=== PATIENT | female | born 1945 | race Caucasian/White ===

== ENCOUNTER 2018-03-30 11:58 | Emergency (ER) | payer MEDICARE, OTHER ==
[2018-03-30] MEDS ORDERED: NS 0.9% 1000 ML* 1,000 ML IV ONE (12:45)
--- NOTE | 2018-03-30 13:17 | RAD ---
HISTORY: Shortness of breath COMPARISONS: August 22, 2014 VIEWS: 1: frontal portable view of the chest at 1:03 PM FINDINGS: LINES AND TUBES: None. CARDIOMEDIASTINAL SILHOUETTE: The cardiomediastinal silhouette is normal for portable technique. PLEURA: The costophrenic angles are sharp. No pleural abnormalities are noted. LUNG PARENCHYMA: The lungs are clear. ABDOMEN: The upper abdomen is clear. There is no subphrenic gas. BONES AND SOFT TISSUES: No bone or soft tissue abnormalities are noted. IMPRESSION: NO ACTIVE CARDIOPULMONARY DISEASE.
[2018-03-30 13:19] LABS: ABS Basophils 0.1 10^3/ul (0-0.2); ABS Eosinophils 0.5 10^3/ul (0-0.6); ABS Lymphocytes 3.5 10^3/ul (1.0-4.8); ABS Monocytes 0.9 10^3/ul (0-0.8); ABS Neutrophils 7.7 10^3/ul (1.5-7.7); ABS Nucleated RBC 0 10^3/ul; Eosinophil % 3.7 % (0-6); Hematocrit 38 % (35-47); Hemoglobin 12.7 g/dl (12.0-16.0); Lymphocyte % 27.7 % (25-47); Mean Corpuscular HGB Conc 34 g/dl (31-36); Mean Corpuscular Hemoglobin 30 pg (27-31); Mean Corpuscular Volume 88 fL (80-97); Mean Platelet Volume 8.6 um3 (7.4-10.4); Nucleated Red Blood Cells % 0.1; Platelet Count 222 10^3/ul (150-450); Red Blood Count 4.27 10^6/ul (4.0-5.4); Red Cell Distribution Width 14 % (10.5-15); White Blood Count 12.7 10^3/ul (3.5-10.8)
--- NOTE | 2018-03-30 13:25 | RAD ---
HISTORY: Altered mental status COMPARISONS: August 23, 2014 TECHNIQUE: Multiple contiguous axial CT scans were obtained of the head without intravenous contrast. FINDINGS: HEMORRHAGE/INFARCT: There is no hemorrhage or acute infarct. MASSES/SHIFT: There is no mass or shift. EXTRA-AXIAL SPACES: There are no extra-axial fluid collections. SULCI AND VENTRICLES: There is diffuse and proportional enlargement of the sulci and ventricles. CEREBRUM: There is hypoattenuation of the periventricular and subcortical white matter. BRAINSTEM: There are no focal parenchymal abnormalities. CEREBELLUM: There are no focal parenchymal abnormalities. VESSELS: There is calcification of the cavernous segments of the internal carotid arteries bilaterally and of the distal vertebral arteries bilaterally. PARANASAL SINUSES: The paranasal sinuses are clear. ORBITS: The orbits are unremarkable. BONES AND SOFT TISSUE: No bone or soft tissue abnormalities are noted. OTHER: None IMPRESSION: NO ACUTE INTRACRANIAL PATHOLOGY. DIFFUSE INVOLUTIONAL CHANGE WITH CHRONIC SMALL VESSEL ISCHEMIC CHANGES.
[2018-03-30 13:26] LABS: INR 0.98 (0.77-1.02)
[2018-03-30 13:36] LABS: EGFR Non-African American 39.1 (>60)
[2018-03-30] MEDS ORDERED: Magnesium Sulfate 1 GM IV* 1 GM/100 ML BAG IV ONE (14:13)
[2018-03-30 15:09] VITALS: BP 116/69
[2018-03-30] MEDS ORDERED: LORazepam INJ* 2 MG/ML 1 ML VIAL IV PUSH ONE (15:19)
[2018-03-30] MEDS ORDERED: LORazepam INJ* 2 MG/ML 1 ML VIAL ONE (15:21)
[2018-03-30 16:26] LABS: Urine Appearance Cloudy; Urine Blood Negative (Negative); Urine Color Amber; Urine Ketones Negative (Negative); Urine Protein 1+(30 mg/dL) (Negative); Urine Specific Gravity 1.023 (1.010-1.030); Urine Urobilinogen Positive (Negative)
[2018-03-30] MEDS ORDERED: Levofloxacin TAB* 500 MG PO ONE (17:02)
--- NOTE | 2018-03-30 17:20 | ED ---
Adalberto De Dios Stephanie, scribed for Maikel Garcia on 03/30/18 at 1226 . Complex/Multi-Sys Presentation - HPI Summary HPI Summary: The pt is a 72 y/o F presenting to the ED with c/o weakness since 3 weeks ago. Symptoms include CP, SOB, R LE edema, cough, R ear ache, partial hearing loss, red eyes and confusion. The pt denies fever. The pt went to her PCP for cold symptoms and ear infection. A urine sample noted increased bilirubin (per pt) and PCP advised pt to go to ED for follow up. - History Of Current Complaint Chief Complaint: EDGeneral Time Seen by Provider: 03/30/18 12:13 Hx Obtained From: Patient Onset/Duration: Gradual Onset, Lasting Weeks - 3, Still Present Timing: Constant Severity Currently: Moderate Aggravating Factor(s): Nothing Alleviating Factor(s): Nothing Associated Signs And Symptoms: Positive: Confusion, SOB, Cough, Chest Pain, Other - L LE edema, R ear ache - Allergies/Home Medications Allergies/Adverse Reactions: Allergies Allergy/AdvReac Type Severity Reaction Status Date / Time Corticosteroids Allergy Hallucinati Verified 03/30/18 12:03 (Glucocorticoids) ons strawberry Allergy Unknown Verified 03/30/18 12:03 Reaction Details sulfite Allergy Tingling Verified 03/30/18 12:03 Home Medications: Home Medications Etodolac [Lodine] 400 mg PO BID 03/30/18 [History Confirmed 03/30/18] Hydrocodone/APAP 5/300 (NF) [Vicodin 5 MG/300 MG(NF)] 1 tab PO .Q4-6H PRN [History Confirmed 03/30/18] Hydrocortisone 2.5% CREAM(NF) 1 applic TOPICAL QID PRN 03/30/18 [History Confirmed 03/30/18] Magnesium Gluconate 550 mg PO DAILY 03/30/18 [History Confirmed 03/30/18] PMH/Surg Hx/FS Hx/Imm Hx Endocrine/Hematology History: Denies: Hx Diabetes Cardiovascular History: Reports: Hx Hypertension Denies: Hx Pacemaker/ICD Respiratory History: Reports: Hx Asthma History: Denies: Hx Renal Disease Sensory History: Reports: Hx Contacts or Glasses Denies: Hx Hearing Aid Opthamlomology History: Reports: Hx Contacts or Glasses Psychiatric History: Reports: Hx Panic Disorder - Cancer History Hx Chemotherapy: No Hx Radiation Therapy: No - Surgical History Surgery Procedure, Year, and Place: HYSTERECTOMY, GB, LEFT WRIST REPAIR Infectious Disease History: No Infectious Disease History: Denies: Traveled Outside the [place] in Last 30 Days - Family History Known Family History: Negative: Renal Disease - Social History Occupation: Retired Lives: With Family Alcohol Use: None Hx Substance Use: No Substance Use Type: Reports: None Hx Tobacco Use: No Smoking Status (MU): Never Smoked Tobacco Have You Smoked in the Last Year: No Review of Systems Negative: Fever Positive: Erythema Positive: Ear Ache - R , Other - partial hearing loss Positive: Chest Pain Positive: Shortness Of Breath, Cough Positive: Edema - R LE Neurological: Other - confusion All Other Systems Reviewed And Are Negative: Yes Physical Exam - Summary Physical Exam Summary: Appearance: Well appearing, no pain distress Skin: warm, dry, reflects adequate perfusion Head/face: normal Eyes: EOMI, KSENIA, yellow discoloration of conjunctiva ENT: Dry mucous membranes Neck: supple, non-tender Respiratory: CTA, breath sounds present Cardiovascular: RRR, pulses symmetrical Abdomen: non-tender, soft Bowel: present Musculoskeletal: normal, strength/ROM intact Neuro: normal, sensory motor intact, A&Ox3 Triage Information Reviewed: Yes Vital Signs On Initial Exam: Initial Vitals Temp Pulse Resp BP Pulse Ox 97.6 F 49 20 99/67 92 03/30/18 12:04 03/30/18 12:04 03/30/18 12:04 03/30/18 12:04 03/30/18 12:04 Vital Signs Reviewed: Yes Diagnostics - Vital Signs Vital Signs Temp Pulse Resp BP Pulse Ox 03/30/18 12:04 97.6 F 49 20 99/67 92 - Laboratory Lab Results: Lab Results 03/30/18 03/30/18 03/30/18 Range/Units 13:11 13:12 13:12 WBC 12.7 H (3.5-10.8) 10^3/ul RBC 4.27 (4.0-5.4) 10^6/ul Hgb 12.7 (12.0-16.0) g/dl Hct 38 (35-47) % MCV 88 (80-97) fL MCH 30 (27-31) pg MCHC 34 (31-36) g/dl RDW 14 (10.5-15) % Plt Count 222 (150-450) 10^3/ul MPV 8.6 (7.4-10.4) um3 Neut % (Auto) 60.7 (38-83) % Lymph % (Auto) 27.7 (25-47) % [place] % (Auto) 7.1 H (0-7) % Eos % (Auto) 3.7 (0-6) % Baso % (Auto) 0.8 (0-2) % Absolute Neuts (auto) 7.7 (1.5-7.7) 10^3/ul Absolute Lymphs (auto) 3.5 (1.0-4.8) 10^3/ul Absolute Monos (auto) 0.9 H (0-0.8) 10^3/ul Absolute Eos (auto) 0.5 (0-0.6) 10^3/ul Absolute Basos (auto) 0.1 (0-0.2) 10^3/ul Absolute Nucleated RBC 0 10^3/ul Nucleated RBC % 0.1 INR (Anticoag Therapy) (0.77-1.02) APTT (26.0-36.3) seconds Sodium 137 L (139-145) mmol/L Potassium 3.8 (3.5-5.0) mmol/L Chloride 104 (101-111) mmol/L Carbon Dioxide 24 (22-32) mmol/L Anion Gap 9 (2-11) mmol/L BUN 17 (6-24) mg/dL Creatinine 1.33 H (0.51-0.95) mg/dL Est GFR ( Amer) 50.3 (>60) Est GFR (Non-Af Amer) 39.1 (>60) BUN/Creatinine Ratio 12.8 (8-20) Glucose 160 H (70-100) mg/dL Lactic Acid (0.5-2.0) mmol/L Calcium 11.8 H (8.6-10.3) mg/dL Magnesium 1.6 L (1.9-2.7) mg/dL Total Bilirubin 1.00 (0.2-1.0) mg/dL AST 19 (13-39) U/L ALT 15 (7-52) U/L Alkaline Phosphatase 118 H (34-104) U/L Troponin I 0.00 (<0.04) ng/mL B-Natriuretic Peptide 109 H ( - 100) pg/mL Total Protein 6.8 (6.4-8.9) g/dL Albumin 3.7 (3.2-5.2) g/dL Globulin 3.1 (2-4) g/dL Albumin/Globulin Ratio 1.2 (1-3) Urine Color Urine Appearance Urine pH (5-9) Ur Specific [place] (1.010-1.030) Urine Protein (Negative) Urine Ketones (Negative) Urine Blood (Negative) Urine Nitrate (Negative) Urine Bilirubin (Negative) Urine Urobilinogen (Negative) Ur Leukocyte Esterase (Negative) Urine WBC (Auto) (Absent) Urine RBC (Auto) (Absent) Ur Squamous Epith Cells (Absent) Urine Bacteria (Absent) Hyaline Casts (Absent) Urine Glucose (Negative) 03/30/18 03/30/18 03/30/18 Range/Units 13:12 13:12 16:07 WBC (3.5-10.8) 10^3/ul RBC (4.0-5.4) 10^6/ul Hgb (12.0-16.0) g/dl Hct (35-47) % MCV (80-97) fL MCH (27-31) pg MCHC (31-36) g/dl RDW (10.5-15) % Plt Count (150-450) 10^3/ul MPV (7.4-10.4) um3 Neut % (Auto) (38-83) % Lymph % (Auto) (25-47) % [place] % (Auto) (0-7) % Eos % (Auto) (0-6) % Baso % (Auto) (0-2) % Absolute Neuts (auto) (1.5-7.7) 10^3/ul Absolute Lymphs (auto) (1.0-4.8) 10^3/ul Absolute Monos (auto) (0-0.8) 10^3/ul Absolute Eos (auto) (0-0.6) 10^3/ul Absolute Basos (auto) (0-0.2) 10^3/ul Absolute Nucleated RBC 10^3/ul Nucleated RBC % INR (Anticoag Therapy) 0.98 (0.77-1.02) APTT 27.7 (26.0-36.3) seconds Sodium (139-145) mmol/L Potassium (3.5-5.0) mmol/L Chloride (101-111) mmol/L Carbon Dioxide (22-32) mmol/L Anion Gap (2-11) mmol/L BUN (6-24) mg/dL Creatinine (0.51-0.95) mg/dL Est GFR ( Amer) (>60) Est GFR (Non-Af Amer) (>60) BUN/Creatinine Ratio (8-20) Glucose (70-100) mg/dL Lactic Acid 2.0 (0.5-2.0) mmol/L Calcium (8.6-10.3) mg/dL Magnesium (1.9-2.7) mg/dL Total Bilirubin (0.2-1.0) mg/dL AST (13-39) U/L ALT (7-52) U/L Alkaline Phosphatase (34-104) U/L Troponin I (<0.04) ng/mL B-Natriuretic Peptide ( - 100) pg/mL Total Protein (6.4-8.9) g/dL Albumin (3.2-5.2) g/dL Globulin (2-4) g/dL Albumin/Globulin Ratio (1-3) Urine Color [place] Urine Appearance Cloudy Urine pH 5.0 (5-9) Ur Specific [place] 1.023 (1.010-1.030) Urine Protein 1+(30 mg/dl) A (Negative) Urine Ketones Negative (Negative) Urine Blood Negative (Negative) Urine Nitrate Negative (Negative) Urine Bilirubin 2+ A (Negative) Urine Urobilinogen Positive A (Negative) Ur Leukocyte Esterase 2+ A (Negative) Urine WBC (Auto) 3+(>20/hpf) A (Absent) Urine RBC (Auto) 1+(3-5/hpf) A (Absent) Ur Squamous Epith Cells Present A (Absent) Urine Bacteria 1+ A (Absent) Hyaline Casts Present A (Absent) Urine Glucose Negative (Negative) Result Diagrams: 03/30/18 13:12 03/30/18 13:12 Lab Statement: Any lab studies that have been ordered have been reviewed, and results considered in the medical decision making process. - Radiology CXR Xray Interpretation: No Acute Changes Radiology Interpretation Completed By: Radiologist - NO ACTIVE CARDIOPULMONARY DISEASE. ED physician has reviewed this report. - CT Brain CT Interpretation: Positive (See Comments) CT Interpretation Completed By: Radiologist - NO ACUTE INTRACRANIAL PATHOLOGY. DIFFUSE INVOLUTIONAL CHANGE WITH CHRONIC SMALL VESSEL ISCHEMIC CHANGES. ED physician has reviewed this report. - EKG 12:55 Cardiac Rate: Bradycardia EKG Rhythm: Sinus Bradycardia - 49 BPM EKG Interpretation: ST changes in lateral leads Re-Evaluation - Re-Evaluation First Eval Re-Evaluation Time: 15:16 Change: Worse - The pt states she cant breath and has nausea. Second Eval Re-Evaluation Time: 17:01 Change: Improved - The pt states she wants to go home. Complex Multi-Symp Course/Dx Course Of Treatment: The pt is a 72 y/o F presenting to the ED with c/o weakness since 3 weeks ago. Symptoms include CP, SOB, R LE edema, cough, R ear ache, partial hearing loss, red eyes and confusion. Labs and urines obtained. Imaging show no acute disease. - Diagnoses Differential Diagnoses/HQI/PQRI: Aspiration, Metabolic Abnormality, Sepsis, Urinary Tract Infection Provider Diagnoses: UTI (urinary tract infection), Delirium Discharge - Sign-Out/Discharge Documenting (check all that apply): Discharge/Admit/Transfer - Discharge - Discharge Plan Condition: Stable Disposition: HOME Prescriptions: Levofloxacin TAB* [Levaquin TAB*] 500 mg PO DAILY #7 tab Patient Education Materials: Urinary Tract Infection in Women (ED) Referrals: Mau Coon MD [Primary Care Provider] - 3 Days Additional Instructions: Return to the ED for any new or worsening symptoms. - Billing Disposition and Condition Condition: STABLE Disposition: HOME The documentation as recorded by the Adalberto wallace Stephanie accurately reflects the service I personally performed and the decisions made by me, Maikel Garcia.
--- NOTE | 2018-04-01 08:35 | PN ---
Progress Note - Progress Note Date of Service: 04/01/18 Note: Patient urine culture preliminary grew Escherichia coli 100,000 Patient was placed on Levaquin prior to discharge We will await sensitivities prior to changing antibiotic Nothing further at this time Chinyere Zamorano, PAC
--- NOTE | 2018-04-02 17:46 | PN ---
Progress Note - Progress Note Date of Service: 03/30/18 Note: Pt. seen in the ER 03/30/18 and started on Levaquin for UTI. Urine culture today is growing >100,000 e. coli resistant to levaquin. I called and spoke with pt.' s today and discussed results. Pt.'s states she follows with Dr. Hawkins, urology, for her recurrent. Pt.'s states that keflex typically works well and he has an old rx at home. Pt. would like to call Dr. Hawkins's office for a new rx and does not wish for me to rx keflex at this time. He states he will call ER back if any issues arise. Pt. will f.u with PCP and urology.
== END 2018-03-30 17:14 | disposition home or self-care (01) ==
LOC: ED 11:58
DX: N39.0 Urinary tract infection, site not specified (principal); B96.20 Unspecified Escherichia coli [E. coli] as the cause of diseases classified elsewhere; Z16.39 Resistance to other specified antimicrobial drug; R41.0 Disorientation, unspecified; Z88.8 Allergy status to other drugs, medicaments and biological substances
CPT/HCPCS: 36415; 70450; 71045; 80053; 81003; 81015; 83605; 83735; 83880; 84484; 85025; 85610; 85730; 87077; 87086; 87186; 93005; 96361; 96374; 99283; J2060; J3475

== ENCOUNTER 2019-01-22 15:11 | Inpatient (IN) | payer MEDICARE, OTHER ==
--- NOTE | 2019-01-22 15:53 | ED ---
Altered Mental Status - HPI Summary HPI Summary: This pt is a 73 y/o female presenting to [facility] via EMS for confusion. Pt unable to give history. Pt intermittent tearful, confused and not oriented. Pt reports she thought that 1 week ago her son was having a baby. . Per triage note , pt was found on the bathroom floor today and has been confused since yesterday. Pt had a urine culture yesterday that was negative for infection. Pt 's sates she gets like this with uti. Pt states yesterday he brought urine sample in and started Augmentin - pt has had 3 doses No injury when Pt is able to state president's name and her 's name. She is able to state her month and year of . Not able to state the year. HPI IS LIMITED DUE TO LEVEL 5 CAVEAT - confusion. Patient medication reviewed this visit. - History Of Current Complaint Chief Complaint: EDAltMentalStatus Stated Complaint: CONFUSION PER EMS Time Seen by Provider: 01/22/19 15:20 Hx Obtained From: Patient, Medical Records Hx From Patient Unobtainable Due To: Other - Level 5 caveat - confusion Onset/Duration: Still Present Timing: Constant Severity Currently: Severe Character: Confusion Aggravating Factor(s): Unknown Alleviating Factor(s): Unknown - Allergies/Home Medications Allergies/Adverse Reactions: Allergies Allergy/AdvReac Type Severity Reaction Status Date / Time Corticosteroids Allergy Hallucinati Verified 03/30/18 12:03 (Glucocorticoids) ons strawberry Allergy Unknown Verified 03/30/18 12:03 Reaction Details sulfite Allergy Tingling Verified 03/30/18 12:03 Home Medications: Home Medications Ciclopirox Olamine [Ciclopirox] 0.77 % TOPICAL BID 01/22/19 [History Confirmed 01/22/19] Cyclobenzaprine TAB* [Flexeril 10 MG TAB*] 10 mg PO TID PRN 01/22/19 [History Confirmed 01/22/19] Etodolac 400 mg PO BID 01/22/19 [History Confirmed 01/22/19] Lidocaine PATCH 5%* [Lidoderm 5% Patch*] 1 patch TRANSDERM DAILY 01/22/19 [ History Confirmed 01/22/19] SUMAtriptan TAB* [Imitrex TAB*] 100 mg PO DAILY PRN MDD 200 mg 01/22/19 [ History Confirmed 01/22/19] PMH/Surg Hx/FS Hx/Imm Hx Previously Healthy: Yes Endocrine/Hematology History: Denies: Hx Anticoagulant Therapy, Hx Diabetes Cardiovascular History: Reports: Hx Hypertension Denies: Hx Pacemaker/ICD Respiratory History: Reports: Hx Asthma History: Denies: Hx Renal Disease Sensory History: Reports: Hx Contacts or Glasses Denies: Hx Hearing Aid Opthamlomology History: Reports: Hx Contacts or Glasses Psychiatric History: Reports: Hx Panic Disorder - Cancer History Hx Chemotherapy: No Hx Radiation Therapy: No - Surgical History Surgery Procedure, Year, and Place: HYSTERECTOMY. 2008 - LEFT WRIST REPAIR- FX - EXTERNAL FIXATION - NO INTERNAL HARDWARE. CHOLECYSTECTOMY Infectious Disease History: No Infectious Disease History: Denies: Traveled Outside the [place] in Last 30 Days - Family History Known Family History: Positive: Unknown - Level 5 caveat - pt with confusion Negative: Renal Disease - Social History Alcohol Use: None Alcohol Amount: "port every night for cough" Hx Substance Use: No Substance Use Type: Reports: None Hx Tobacco Use: No Smoking Status (MU): Never Smoked Tobacco Have You Smoked in the Last Year: No Review of Systems - ROS Summary Review of Systems Summary: ROS IS LIMITED DUE TO LEVEL 5 CAVEAT - confusion Negative: Fever Neurological: Other - POSITIVE: confusion All Other Systems Reviewed And Are Negative: No Physical Exam - Summary Physical Exam Summary: Vital Signs Reviewed: Yes Alert, not orientated, emotional with tearful outbursts Eyes: Conjunctiva Clear, KSENIA. EOM intact and full ENT: Hearing grossly normal TM x 2 clear, mmoist, uvula midline, no exudate, no erythema Neck: Positive: Supple Respiratory: Positive: No respiratory distress, No accessory muscle use + CTA throughout no w/r Cardiovascular: RRR nl s1, s2 no m/r CBT <2 sec abd soft + BS nt/nd no guarding, no distension Musculoskeletal Exam: POLO x 4 without difficulty Strength Intact, ROM Intact Neurological: Positive: Alert, + sensation throughout Psychological: Positive: Normal Response To Family Skin: Positive: no rash, no ecchymosis Triage Information Reviewed: Yes Vital Signs On Initial Exam: Initial Vitals Temp Pulse Resp BP Pulse Ox 97.9 F 63 18 165/80 96 01/22/19 15:16 01/22/19 15:16 01/22/19 15:16 01/22/19 15:16 01/22/19 15:16 Completion Of Physical Exam Limited Due To: Level 5 - pt with confusion Diagnostics - Vital Signs Vital Signs Temp Pulse Resp BP Pulse Ox 01/22/19 15:23 60 96 01/22/19 15:16 97.9 F 63 18 165/80 96 - Laboratory Result Diagrams: 01/23/19 05:22 01/24/19 06:33 Lab Statement: Any lab studies that have been ordered have been reviewed, and results considered in the medical decision making process. - Radiology Chest XR Radiology Interpretation Completed By: Radiologist Summary of Radiographic Findings: IMPRESSION: No evidence for acute intrathoracic disease. Dr. Nunn has reviewed this report. - CT brain CT CT Interpretation Completed By: Radiologist Summary of CT Findings: IMPRESSION: #. Involutional change and stigmata of chronic small vessel ischemic disease. #. No acute CT abnormality of the brain evident. #. Sphenoid paranasal sinus disease. Dr. Nunn has reviewed this report. - EKG 15:39 Cardiac Rate: Bradycardia - at 57 bpm EKG Rhythm: Sinus Bradycardia Re-Evaluation - Re-Evaluation First Eval Re-Evaluation Time: 16:57 Comment: Wrote pt for Rocephin for UTI. Spoke with pt's and discussed admission plan. reports the pt started Augmentin last night and has had 2 doses already. Pt gave a urine sample yesterday and it came back negative. REviewed cultures - previous resistance to Augmentin, sensitive to Rocephin Altered Mental Statu Course/Dx - Course Course Of Treatment: Patient presents emergency department by EMS. Patient with progressive episodes of confusion the last 3 days. Patient's history came from her . Patient with a history of current UTIs usually coming by confusion. Patient brought a urine sample for testing yesterday. Patient took Augmentin 3 doses but states the more confused. Patient did have a fall about today. He was there with her nose a slight that he was able to help her. Patient without any injuries. Patient unable to give a good history of emotional and confused. On exam vital signs are stable. Will give fluids, check labs, straight catheter urine with Liu, lactic acid, anticipate admission. If urine is not infected may consider CAT scan. comfortable in agreement with plan. - Diagnoses Provider Diagnoses: UTI (urinary tract infection), Altered mental state Discharge - Sign-Out/Discharge Documenting (check all that apply): Patient Departure - [place] [facility] [place] exams completed and their final reports reviewed: Yes Patient Received Moderate/Deep Sedation with Procedure: No - Discharge Plan Condition: Stable Disposition: ADMITTED TO [facility] - Billing Disposition and Condition Condition: STABLE Disposition: Admitted to [facility] - Attestation Statements Document Initiated by Angelibe: Yes Documenting Scribe: Norah Gomez Provider For Whom Scribe is Documenting (Include Credential): Jayshree Nunn MD Scribe Attestation: Norah De Dios, scribed for Jayshree Nunn MD on 01/24/19 at 1701. Scribe Documentation Reviewed: Yes Provider Attestation: The documentation as recorded by the Norah wallace accurately reflects the service I personally performed and the decisions made by , Jayshree Nunn MD Status of Scribe Document: Viewed
[2019-01-22] MEDS ORDERED: NS 0.9% 1000 ML** 1,000 ML IV ONE (15:54)
[2019-01-22 16:02] LABS: ABS Basophils 0.1 10^3/ul (0-0.2); ABS Eosinophils 0.2 10^3/ul (0-0.6); ABS Lymphocytes 2.4 10^3/ul (1.0-4.8); ABS Monocytes 0.6 10^3/ul (0-0.8); ABS Neutrophils 5.4 10^3/ul (1.5-7.7); ABS Nucleated RBC 0 10^3/ul; Eosinophil % 2.1 %; Hematocrit 42 % (33-41); Hemoglobin 14.3 g/dL (12.0-16.0); Lymphocyte % 28.4 %; Mean Corpuscular HGB Conc 34 g/dL (31-36); Mean Corpuscular Hemoglobin 31 pg (27-31); Mean Corpuscular Volume 90 fL (80-97); Mean Platelet Volume 9.6 fL (7.4-10.4); Nucleated Red Blood Cells % 0.2; Platelet Count 167 10^3/uL (150-450); Red Blood Count 4.68 10^6 /uL (3.70-4.87); Red Cell Distribution Width 15 % (10.5-15); White Blood Count 8.6 10^3/uL (3.5-10.8)
[2019-01-22 16:21] LABS: Albumin 4.2 g/dL (3.2-5.2); Albumin/Globulin Ratio 1.6 (1-3); BUN/Creatinine Ratio 13.3 (8-20); EGFR African American 67.1 (>60); EGFR Non-African American 55.5 (>60); Globulin 2.7 g/dL (2-4); Magnesium 1.9 mg/dL (1.9-2.7); Potassium 4.1 mmol/L (3.5-5.0); Total Bilirubin 1.1 mg/dL (0.2-1.0); Total Protein 6.9 g/dL (6.4-8.9)
[2019-01-22 16:53] LABS: Urine Appearance Turbid; Urine Bacteria Absent (Absent); Urine Bilirubin 2+ (Negative); Urine Blood Negative (Negative); Urine Color Yellow; Urine Glucose Negative (Negative); Urine Ketones Negative (Negative); Urine Nitrite Negative (Negative); Urine Protein Negative (Negative); Urine Red Blood Cell 1+(3-5/hpf) (Absent); Urine Specific Gravity 1.017 (1.010-1.030); Urine Urobilinogen Positive (Negative); Urine White Blood Cell 3+(>20/hpf) (Absent)
[2019-01-22] MEDS ORDERED: cefTRIAXone(*) 1 GM in NS 0.9% 50 ML* 50 ML IVPB ONE (16:56)
[2019-01-22 17:13] LABS: TSH (Thyroid Stimulating Horm) 1.86 mcIU/mL (0.34-5.60)
[2019-01-22] MEDS ORDERED: NS 0.9% 1000 ML** 1,000 ML IV SCH (17:45)
[2019-01-22] MEDS ORDERED: Acetaminophen TAB* 325 MG PO PRN (18:08)
[2019-01-22] MEDS ORDERED: Ondansetron INJ* 2 MG/ML VIAL IV PRN (18:08)
[2019-01-22] MEDS: Lidocaine Patch REMOVE* 1 NOTE MISC PATCH OFF SCH (20:36)
[2019-01-22] MEDS: Atenolol TAB* 50 MG PO SCH (20:53)
[2019-01-22] MEDS: Heparin VIAL(*) 5000 UNITS/ML VIAL (FIVE THOUSAND) SUBCUT SCH (20:53)
[2019-01-22] MEDS: Nabumetone TAB* 500 MG PO SCH (20:55)
[2019-01-23] MEDS: NS 0.9% 1000 ML** 1,000 ML IV SCH ×2 (03:05→22:00)
--- NOTE | 2019-01-23 03:49 | HP ---
CC: Dr. Mau Coon * HISTORY AND PHYSICAL: DATE OF ADMISSION: 01/22/19 PRIMARY CARE PROVIDER: Dr. Mau Coon. MY ATTENDING WHILE IN THE HOSPITAL: Dr. Carmen Rivera.* (DICTATED BY ROLANDO CARTER) CHIEF COMPLAINT: Worsening confusion x3 days. HISTORY OF PRESENT ILLNESS: Ms. Tello is a 73-year-old female with past medical history significant for mild cognitive impairment, frequent urinary tract infections, and history of arachnoiditis, who presented to the emergency department with her after 3 days of worsening confusion. The patient has had previously been admitted to this institution for confusion associated a urinary tract infection and at that time had a large workup for secondary causes of altered mental status, all of which came back negative. The patient has been having her cognitive impairment tracked by her neurologist for several years now with stable Mini-Mental Status Exam scores. The patient has a strong family history of bipolar disorder and has been having hallucinations as of last October, but does not appear to have followed up with a psychiatrist as was recommended by her neurologist. The patient 3 days ago began to have symptoms consistent with a UTI such as dysuria, urinary frequency. The patient denied nausea, vomiting, fevers or chills. The patient has seen her urologist and was started on Augmentin; however, her most recent urine culture was resistant to Augmentin. The patient had taken 3 of these doses before coming into the hospital. The patient had no nausea or vomiting. The patient had very poor oral intake. The patient has had a headache consistent with her infrequent migraines since she was in the emergency department, but was not able to elucidate this very well. Most of the patient's history is obtained from her as she is very confused. The patient's states that over the last 12 hours or so, she has been getting more confused and he has been giving her Xanax because the patient had previous efficacy in decreasing her delirium while in the hospital; however, it appears that her delirium had gotten worse. The patient also has Benadryl listed at night on her med list for sleep and also has a Flexeril prescribed, though her states she is not taking this. The patient in the emergency department had a UA, which was weakly positive with trace leukocyte esterase, 3+ white blood cells, amorphous crystals, and slightly elevated red blood cells. The patient had a CT of her brain, which was negative for bleed or infract. Chest x-ray showed no acute intrathoracic disease. The patient's vital signs were within normal limits and her BNP showed slightly elevated calcium and was otherwise relatively unremarkable. Due to concerns for altered mental status, we were asked to evaluate the patient for admission to the hospital. PAST MEDICAL HISTORY: Mild cognitive disorder, fibromyalgia, hypertension, osteoarthritis, history of arachnoiditis, history of infrequent migraines, frequent UTIs. PAST SURGICAL HISTORY: JOSE, cholecystectomy. MEDICATIONS: 1. Nexium 40 mg p.o. daily. 2. Tylenol 50 mg p.o. b.i.d. 3. Sirisha 60 mg p.o. b.i.d. 4. Verapamil 240 mg p.o. daily. 5. Etodolac 400 mg p.o. b.i.d. 6. Accolate 20 mg p.o. b.i.d. 7. Lisinopril 20 mg p.o. daily. 8. Magnesium 550 mg p.o. daily. 9. Xanax 0.5 p.o. t.i.d. as needed. 10. Vicodin 5/325 one tab p.o. q.4 hours as needed. 11. Imitrex 50 mg p.o. daily. 12. Tylenol-diphenhydramine 1 tab p.o. at bedtime. 13. Amoxicillin and clavulanic acid 875 mg p.o. b.i.d. 14. Citalopram 40 mg p.o. daily. FAMILY HISTORY: The patient and her do not know how her mother . The patient's father of Parkinson's disease. The patient has a family history of bipolar disorder, but it is unclear who this was present in. SOCIAL HISTORY: The patient has smoked fewer than 100 cigarettes lifetime. The patient drank alcohol rarely throughout her life. The patient denies illicit drug use. The patient is a retried world history teacher. She is and has 2 children. The patient's surrogate decision maker will be her , Paco Tello. REVIEW OF SYSTEMS: A 14-point review of systems was reviewed with the patient and her and is negative except as above in the HPI. PHYSICAL EXAMINATION GENERAL: The patient is a 73-year-old female, who appears stated age and is sitting comfortably in bed, in no acute distress. VITAL SIGNS: At time of evaluation, temperature 97.9, pulse rate 59, respiratory rate 14, oxygen saturation 96% on room air, blood pressure 150/83. HEENT: Head is normocephalic, atraumatic. Sclerae anicteric. No conjunctival injection. Nasal mucosa dry. Oral mucosa dry. No pharyngeal erythema, discharge, or exudate. NECK: Supple, nontender. No lymphadenopathy. No carotid bruits auscultated. No JVD. RESPIRATORY: Clear to auscultation bilaterally. No wheezes, rales, rhonchi. Good air exchange bilaterally. CARDIAC: Regular rate and rhythm. No clicks, murmurs, gallops, or rubs. Pulses 2+ in bilateral dorsalis pedis, posterior tibialis, and radial areas. ABDOMEN: Soft, nontender, nondistended. Bowel sounds present and normoactive in all 4 quadrants. No hepatosplenomegaly. No abdominal bruits auscultated. No hepatojugular reflux. GENITOURINARY: No suprapubic or CVA tenderness. SKIN: Intact. No rashes. NEUROLOGIC: Cranial nerves II through XII are intact. Diffusely weak. No focal deficits. Alert and oriented only to self. PSYCHIATRIC: Paranoid ramblings. Denies hallucinations. DIAGNOSTIC STUDIES/LAB DATA: White blood cell count 8.6, hemoglobin 14.3, platelet count 167. Sodium 140, potassium 4.0, chloride 108, carbon dioxide 26 , anion gap 16 and 13, creatinine 0.98, glucose 104, lactic acid 1.6, calcium 12.0, magnesium 1.9. Bilirubin 1.1, AST 30, ALT 21, alkaline phosphatase 113. Ammonia 46. Troponin 0.00. Protein 6.9, albumin 4.2, globulin 2.7. TSH 1.86. Urine is yellow turbid, 2+ bilirubin, positive urobilinogen, trace leukocyte esterase, 3+ white blood cells, 1+ red blood cells, amorphous crystals, negative bacteria, negative glucose. Studies: Chest x-ray shows no acute intrathoracic disease. EKG shows normal sinus rhythm. Poor quality study. Inverted T-waves throughout compared to previous exam is unchanged. Normal axis. Incomplete right bundle branch block. Possible left atrial enlargement. No significant abnormalities. Brain CT read as chronic ischemic changes consistent with chronic microvascular ischemia. No acute CT abnormalities of brain, sphenoid paranasal sinus disease. ASSESSMENT AND PLAN/IMPRESSION: Ms. Tello is a 73-year-old female with past medical history significant for mild cognitive impairment with frequent urinary tract infections and arachnoiditis, who presented to the emergency department with altered mental status in the setting of a likely urinary tract infection with positive symptoms as well as significant psychotropic medication use. The patient will be admitted to the hospital for fluids, antibiotics, and close monitoring. 1. Altered mental status, likely toxic metabolic encephalopathy. The patient' s altered mental status is likely multifactorial. The patient has a possible urinary tract infection with a weakly positive UA. The patient had a urine culture yesterday, which grew no clinically significant organisms to the contamination. The patient has numerous other positive urinary tract infections. The patient's cultured E. coli was most recently resistant to Augmentin. The patient will be started on ceftriaxone and repeat culture will be obtained. Blood culture also obtained. The patient has no other signs of infection. The patient also has been taking significant doses of psychotropic medications including up to 4 tablets of Xanax within the past 24 hours likely exacerbation of the patient's delirium. The patient will have these psychotropic medications held and will be monitored closely. The patient will be given fluids to help with her creatinine clearance, though her creatinine is near baseline. If the patient does not improve, further imaging of the patient' s brain may be indicated; however, cerebrovascular accident is unlikely at this time. 2. Mild cognitive impairment. The patient's underlying dementia is likely exacerbated by delirium, needs supportive care and avoid psychotropic medications where able. 3. Frequent urinary tract infections. The patient has a possible urinary tract infection at this time. The patient has been started on ceftriaxone and will be continued every 24 hours. Pending culture results, the patient will have an ultrasound of her kidneys and bladder. Given the patient's frequent urinary tract infections, suppressive therapy may be indicated in her case. 4. DVT prophylaxis. The patient is on heparin subcu. 5. FEN. The patient will have heart healthy diet without caffeine and fluid 75 mL an hour up to 2 L in the emergency department. 6. Disposition: The patient admitted to observation. 6. Code status: The patient would like to be DNR. TIME SPENT: Approximately 60 minutes spent on the admission of this patient, 30 of which was spent in [id number] with the patient and her obtaining history and physical and discussion of treatment plan. This plan was discussed with my attending, Dr. Carmen Rivera and she is in agreement. ROLANDO CARTER [id number]/CPS #: [id number] JACQUES
[2019-01-23] MEDS: Heparin VIAL(*) 5000 UNITS/ML VIAL (FIVE THOUSAND) SUBCUT SCH ×3 (05:31→22:06)
[2019-01-23 05:57] LABS: ABS Basophils 0.1 10^3/ul (0-0.2); ABS Eosinophils 0.2 10^3/ul (0-0.6); ABS Monocytes 0.6 10^3/ul (0-0.8); ABS Neutrophils 5.1 10^3/ul (1.5-7.7); ABS Nucleated RBC 0 10^3/ul; Eosinophil % 1.9 %; Hematocrit 38 % (33-41); Lymphocyte % 25.5 %; Mean Corpuscular HGB Conc 34 g/dL (31-36); Mean Corpuscular Hemoglobin 30 pg (27-31); Mean Corpuscular Volume 90 fL (80-97); Mean Platelet Volume 9.1 fL (7.4-10.4); Nucleated Red Blood Cells % 0.1; Platelet Count 135 10^3/uL (150-450); Red Blood Count 4.26 10^6 /uL (3.70-4.87); Red Cell Distribution Width 14 % (10.5-15); White Blood Count 7.9 10^3/uL (3.5-10.8)
[2019-01-23 06:36] LABS: Calcium 10.8 mg/dL (8.6-10.3); Magnesium 1.5 mg/dL (1.9-2.7)
[2019-01-23 06:41] LABS: BUN/Creatinine Ratio 9.5 (8-20); EGFR African American 92.8 (>60); EGFR Non-African American 76.7 (>60)
[2019-01-23] MEDS ORDERED: Magnesium Sulf 4 GM/100 ML IV* 4,000 MG/100 ML BAG IVPB ONE (07:04)
[2019-01-23] MEDS: Pantoprazole TAB * 40 MG TAB PO SCH (08:56)
[2019-01-23] MEDS: Atenolol TAB* 50 MG PO SCH ×2 (08:56→22:01)
[2019-01-23] MEDS: Verapamil SR TAB* 240 MG PO SCH (08:56)
[2019-01-23] MEDS: Lidocaine PATCH 5%* 1 PATCH TRANSDERM SCH (08:57)
[2019-01-23] MEDS: Nabumetone TAB* 500 MG PO SCH ×2 (08:57→22:01)
--- NOTE | 2019-01-23 12:13 | PN ---
Subjective Date of Service: 01/23/19 Interval History: Patient this morning complains of persistent lower abdominal pain. Patient is still very confused. Patient denies CP, SOB, F/C, N/V, diarrhea, or other pain. Patient has been needing a safety monitor. Family History: Unchanged from Admission Social History: Unchanged from Admission Past Medical History: Unchanged from Admission Objective Active Medications: Acetaminophen (Tylenol Tab*) 650 mg PO Q6H PRN PRN Reason: FEVER/PAIN Atenolol (Tenormin Tab*) 50 mg PO BID [facility] Last Admin: 01/23/19 08:56 Dose: 50 mg Atorvastatin Calcium (Lipitor*) 20 mg PO QPM [facility] Citalopram Hydrobromide (Celexa Tab*) 40 mg PO QPM [facility] Heparin Sodium (Porcine) (Heparin Vial(*)) 5,000 units SUBCUT Q8HR [facility] Last Admin: 01/23/19 05:31 Dose: 5,000 units Sodium Chloride (Ns 0.9% 1000 Ml) 1,000 mls @ 75 mls/hr IV PER RATE [facility] Last Admin: 01/23/19 03:05 Dose: 75 mls/hr Ceftriaxone Sodium 1 gm/ (Sodium Chloride) 50 mls @ 200 mls/hr IVPB Q24H [facility] Lidocaine (Lidoderm 5% Patch*) 1 patch TRANSDERM DAILY [facility] Last Admin: 01/23/19 08:57 Dose: 1 patch Montelukast Sodium (Singulair Tab*) 10 mg PO DAILY [facility]; Protocol Nabumetone (Relafen Tab*) 1,000 mg PO BID [facility] Last Admin: 01/23/19 08:57 Dose: 1,000 mg Ondansetron HCl (Zofran Inj*) 4 mg IV Q6H PRN PRN Reason: NAUSEA Pantoprazole Sodium (Protonix Tab*) 40 mg PO DAILY [facility]; Protocol Last Admin: 01/23/19 08:56 Dose: 40 mg Pharmacy Profile Note (Lidocaine Patch Remove*) 1 note PATCH OFF BEDTIME [facility] Last Admin: 01/22/19 20:36 Dose: Not Given Verapamil HCl (Calan Sr Tab*) 240 mg PO DAILY [facility] Last Admin: 01/23/19 08:56 Dose: 240 mg Vital Signs - 8 hr 01/23/19 01/23/19 01/23/19 08:00 08:07 11:19 Temperature 97.5 F 97.8 F Pulse Rate 76 68 Respiratory 18 18 22 Rate Blood Pressure 162/82 151/72 (mmHg) O2 Sat by Pulse 97 92 Oximetry Oxygen Devices in Use Now: None Appearance: Patient is a 73yo female who appears stated age and is sitting in the bed in NAD. Eyes: No Scleral Icterus, PERRLA Ears/Nose/Mouth/Throat: NL Teeth, Lips, Gums, Clear Oropharnyx, Mucous Membranes Moist Neck: NL Appearance and Movements; NL JVP, Trachea Midline Respiratory: Symmetrical Chest Expansion and Respiratory Effort, Clear to Auscultation Cardiovascular: NL Sounds; No Murmurs; No JVD, RRR, No Edema Abdominal: NL Sounds; No Tenderness; No Distention, No Hepatosplenomegaly Lymphatic: No Cervical Adenopathy Extremities: No Edema, No Clubbing, Cyanosis Skin: No Rash or Ulcers, No Nodules or Sclerosis Neurological: - - Alert, oriented only to self. Generalized weakness unchanged. Result Diagrams: 01/23/19 05:22 01/23/19 05:22 Assess/Plan/Problems-Billing Assessment: Patient is a 73yo female with a PMH for Mild Cognitive Impairment, Frequent UTIs , Unspecified Mood Disorder, and HTN who is admitted with altered mental status , presumed to be multifactorial from benzodiazepine use, possible urinary tract infection, and possible hypercalcemia. Patient is improving somewhat with fluids and antibiotics. - Patient Problems (1) Toxic metabolic encephalopathy Current Visit: Yes Status: Acute Code(s): G92 - TOXIC ENCEPHALOPATHY SNOMED Code(s): 734827378 Comment: - Improving with fluids and antibiotics - Patient is not back to baseline mental status. - Likely combination of UTI (Patient has had similar reactions), Psychotropic medication use, and possibly hypercalcemia (Less likely). - Continue fluids for now, continue antibiotics. (2) Primary hyperparathyroidism Current Visit: Yes Status: Acute Code(s): E21.0 - PRIMARY HYPERPARATHYROIDISM SNOMED Code(s): 22402911 Comment: - Significantly elevated PTH (28) in setting of hypercalcemia - Inappropriately elevated, Will order US to assess for adenoma - Vitamin D level pending before treatment with marine electronics technician calcium lowering therapy - Based on patient's age and fall risk, will give bisphosphonate if appropriate. (3) Mild cognitive impairment Current Visit: Yes Status: Acute Code(s): G31.84 - MILD COGNITIVE IMPAIRMENT , SO STATED SNOMED Code(s): 283146236 Comment: - Supportive care, avoid psychotropics in setting of delirium. (4) UTI (lower urinary tract infection) Current Visit: No Status: Acute Priority: High Onset Date: 08/23/14 Code (s): N39.0 - URINARY TRACT INFECTION, SITE NOT SPECIFIED SNOMED Code(s): 0177835 Comment: - Awaiting culture, symptomatic - Likely contributing to AMS - Continue Ceftriaxone and image Urinary tract for stones and abscess given recurrent infections. (5) Arachnoiditis Current Visit: No Status: Chronic Code(s): G03.9 - MENINGITIS, UNSPECIFIED SNOMED Code(s): 5806911 Comment: - History of Arachnoiditis leaving patient with inability to walk per (6) HTN (hypertension) Current Visit: No Status: Chronic Priority: Medium Code(s): I10 - ESSENTIAL (PRIMARY) HYPERTENSION SNOMED Code(s): 61776384 Comment: - Normotensive, continue home regimen. (7) Full code status Current Visit: Yes Status: Acute Code(s): Z78.9 - OTHER SPECIFIED HEALTH STATUS SNOMED Code(s): 097662852 (8) DVT prophylaxis Current Visit: Yes Status: Acute Code(s): VMC6332 - SNOMED Code(s): 001693521 Comment: - HSQ Status and Disposition: Inpatient for AMS, discharge when safe at home.
[2019-01-23] MEDS: Montelukast Sodium TAB* 10 MG PO SCH (12:37)
[2019-01-23 13:47] LABS: Phosphorus 2.1 mg/dL (2.5-5.0)
[2019-01-23] MEDS ORDERED: cefTRIAXone(*) 1 GM in NS 0.9% 50 ML* 50 ML IVPB SCH (17:00)
[2019-01-23] MEDS ORDERED: Atorvastatin* 20 MG TAB PO SCH (18:00)
[2019-01-23] MEDS ORDERED: Citalopram TAB* 40 MG PO SCH (18:00)
[2019-01-23] MEDS: Lidocaine Patch REMOVE* 1 NOTE MISC PATCH OFF SCH (22:09)
[2019-01-24] MEDS: Heparin VIAL(*) 5000 UNITS/ML VIAL (FIVE THOUSAND) SUBCUT SCH (05:24)
[2019-01-24 07:30] LABS: BUN/Creatinine Ratio 7.4 (8-20); Calcium 11.2 mg/dL (8.6-10.3); EGFR African American 83.6 (>60); EGFR Non-African American 69.1 (>60); Magnesium 1.7 mg/dL (1.9-2.7); Potassium 3.6 mmol/L (3.5-5.0)
[2019-01-24] MEDS ORDERED: Magnesium Sulfate IV* 3 GM in NS 0.9% 100 ML* 100 ML IVPB ONE (08:00)
[2019-01-24] MEDS: Nabumetone TAB* 500 MG PO SCH (08:06)
[2019-01-24] MEDS: Montelukast Sodium TAB* 10 MG PO SCH (08:07)
[2019-01-24] MEDS: Lidocaine PATCH 5%* 1 PATCH TRANSDERM SCH (08:07)
[2019-01-24] MEDS: Verapamil SR TAB* 240 MG PO SCH (08:07)
[2019-01-24] MEDS: Pantoprazole TAB * 40 MG TAB PO SCH (08:07)
[2019-01-24] MEDS: Atenolol TAB* 50 MG PO SCH (08:07)
[2019-01-24] MEDS ORDERED: Cholecalciferol TAB* 1000 UNITS PO SCH (09:00)
[2019-01-24 11:23] LABS: T4, Total 7.96 mcg/dL (6.09-12.23)
[2019-01-24] MEDS ORDERED: Cinacalcet TAB* 30 MG PO SCH ×2 (11:32→21:00)
[2019-01-24 15:20] VITALS: BP 149/70
--- NOTE | 2019-01-25 00:54 | DS ---
CC: Dr. Mau Coon; Dr. Ronni Gooden * DISCHARGE SUMMARY: DATE OF ADMISSION: 01/22/19 DATE OF DISCHARGE: 01/24/19. PRIMARY CARE PROVIDER: Dr. Mau Coon. MY ATTENDING WHILE IN THE HOSPITAL: Dr. Yehuda Cohen.* (DICTATED BY ROLANDO CARTER) PRIMARY DISCHARGE DIAGNOSES: 1. Altered mental status. 2. Probable urinary tract infection. 3. Hypercalcemia due to primary hyperparathyroidism. 4. Multinodular goiter. 5. Multiple intermediate risk thyroid nodules. 6. Borderline vitamin deficiency. SECONDARY DISCHARGE DIAGNOSES: 1. Mild cognitive impairment. 2. Mood disorder, unspecified. 3. Fibromyalgia. 4. Hypertension. 5. Osteoarthritis. 6. History of arachnoiditis. 7. History of migraines. STUDIES DONE WHILE IN THE HOSPITAL: Chest x-ray from 01/22/19 read as no evidence for acute intrathoracic disease. Brain CT read as involutional change and stigmata of chronic small vessel ischemic disease. No acute CT abnormalities of brain other than sphenoid paranasal sinus disease. Thyroid ultrasound from 01/23/19 read as multinodular goiter. There are intermediate suspicion nodules in the right mid thyroid, left upper thyroid, and left lower thyroid. Left thyroid intermediate suspicion nodules measured 1 cm and 2.5 cm in maximum dimension. [place] [employer] recommends consideration of fine-needle aspiration of intermediate suspicion nodules greater than or equal to 1 cm in size. Low suspicion nodules of the left and right mid thyroid measuring up to 1.5 cm. The [place] [employer] recommends consideration of fine-needle aspiration of low suspicion nodules greater than or equal to 1.5 cm in size diffuse thyroid disease. Abdomen and bladder ultrasound from 01/23/19 read as 10.6 x 5.4 x 6.9 cm right kidney, 9.7 x 5.0 x 4.1 cm left kidney, mild bilateral renal cortical atrophy, normal renal cortical echogenicity. No focal suspicious renal lesions, stones, or hydronephrosis. Assessment of urinary bladder limited despite prolonged filling time. Liu catheter in place. No gross evidence for bladder wall thickening or bladder lesion. MEDICATIONS AT DISCHARGE: 1. Alprazolam 0.5 mg p.o. t.i.d. as needed. 2. Citalopram 40 mg p.o. daily. 3. Zafirlukast 20 mg p.o. b.i.d. 4. Sirisha 60 mg p.o. b.i.d. 5. Lipitor 20 mg p.o. nightly. 6. Omeprazole 40 mg p.o. daily. 7. Atenolol 50 mg p.o. b.i.d. 8. Calan 240 mg p.o. daily. 9. Magnesium gluconate 550 mg p.o. daily. 10. Vicodin 5/325, 1 tab p.o. q.4 to 6 hours as needed. 11. Etodolac 400 mg p.o. b.i.d. as needed. 12. Sumatriptan 100 mg p.o. daily. 13. Ciclopirox 0.77% topical b.i.d. 14. Lidocaine patch, 1 patch transdermal daily. 15. Cyclobenzaprine 10 mg p.o. t.i.d. as needed. 16. Tylenol 650 mg p.o. q.6 hours as needed. 17. Vitamin D 1000 units p.o. daily. 18. Cinacalcet 30 mg p.o. b.i.d. 19. Cefuroxime 500 mg p.o. b.i.d. New medications at discharge: 1. Tylenol. 2. Vitamin D. 3. Cinacalcet. 4. Cefuroxime. Medications discontinued at discharge: 1. Tylenol diphenhydramine 1 tab p.o. at bedtime as needed. 2. Proctozone 2.5 mg topical daily as needed. 3. Augmentin 875 mg p.o. b.i.d. HOSPITAL COURSE: This is a brief summary of the patient's presentation. For more details, please see the history and physical from ROLANDO Carter on . In brief, the patient is a 73-year-old female with past medical history significant for the above, who presented to the emergency department with worsening confusion x3 days. The patient has had previous confusion with urinary tract infections. The patient had previously been evaluated extensively for secondary causes of confusion while she had a UTI, which came back generally negative. The patient began to have UTI symptoms including dysuria, urinary frequency, and then began to become more confused, thinking she was , not being able to name where she was. The patient's at that time gave her several doses of Xanax as he has previously seen benzodiazepines being able to help with her delirium while in the hospital. The patient was also seen by her urologist who started her on Augmentin for UTI, but given her lack of improvement, the patient was referred by her urologist to the emergency department. The patient had very poor oral intake. The patient given her likely multi-factorial delirium, was admitted to the hospital. The patient was discussed with her outpatient primary care physician, Dr. Mau Coon, who stated that in blood work done several days prior to patient's admission, she had a significantly elevated calcium and he was planning on further evaluation of this. The patient in the hospital continued to have significant altered mental status. On 01/23/19, the patient needed a safety monitor. The patient was persistently unable to state where she was. The patient's calcium on admission was 12.0 and came down to 10.8 with fluid resuscitation. The patient had a PTH level drawn, which was 28 despite her hypercalcemia indicating likely primary hyperparathyroidism. The patient had normal TSH with a slightly low T3 and normal T4. The patient had low magnesium and is on home magnesium supplementation. The patient was treated with ceftriaxone IV for her urinary tract infection. The patient had a thyroid ultrasound, which was read as above with multiple thyroid nodules. The patient on 01/24/19 improved dramatically with regards to her mental status, being much more alert, communicative and essentially returned to her baseline per her . The patient had abdomen and bladder ultrasound, which was read as above and showed no abnormalities. The patient had no significant laboratory abnormalities while in the hospital. The patient was started on cinacalcet on 01/24/19 as well as vitamin D due to borderline low vitamin D level at 20.6. The patient was stable and amenable for discharge on 01/24/19. PHYSICAL EXAMINATION ON THE DATE OF DISCHARGE: General: The patient is a 73- year-old female who appears her stated age and sitting comfortably in bed, in no acute distress. Vital Signs at the time of evaluation: Temperature 97.5, pulse rate 60, respiratory rate 18, oxygen saturation 97% on room air, blood pressure 149/70. HEENT: Head normocephalic, atraumatic. Sclerae nonicteric. No conjunctival injection. Nasal mucosa moist. Oral mucosa moist. No pharyngeal erythema, discharge, or exudate. Neck: Supple, nontender. No lymphadenopathy. No carotid bruits auscultated. No JVD. Cardiac: Regular rate and rhythm. No clicks, murmurs, gallops, or rubs. Pulses are 2+ in the dorsalis pedis, posterior tibialis, and radial areas. Respiratory: Clear to auscultation bilaterally. No wheezes, rales, or rhonchi. Good air exchange bilaterally. Abdomen: Soft, nontender, nondistended. Bowel sounds present. Normoactive in all four quadrants. No hepatosplenomegaly. No abdominal bruits auscultated. No hepatojugular reflux. Genitourinary: No suprapubic or CVA tenderness. Skin: Clean, dry, and intact. No rash. Neuro: Cranial nerves II through XII intact. No focal deficits. Alert and oriented x3. Psychiatric: Pleasant and cooperative. Somewhat forgetful. DISCHARGE PLAN: The patient will be discharged to home. The patient should follow up with primary care provider within 1 week for general medical management and for repeat calcium level. The patient was started on cinacalcet 30 mg p.o. b.i.d. for her primary hyperparathyroidism. Given the patient's age and risk of falls, the patient should be started on additionally a bisphosphonate, preferably relatively short acting. If her calcium either remains elevated or returns to normal range on her repeat laboratory assessment , the patient's vitamin D level was borderline low and she was started on vitamin D supplementation. The patient should avoid rizwan doses of vitamin D due to hypercalcemia. The patient has been referred to Dr. Ronni Gooden of Endocrinology for evaluation of hyperparathyroidism. Per his recommendation, the patient should have further evaluation of her thyroid nodules including with sestamibi SPECT CT scanning as well as possible fine-needle aspiration to assess for malignancy and the functionality of patient's nodules. The patient should then be referred to an endocrine surgeon if indicated. The patient will be continued on cefuroxime for 4 more days. After completing a 7-day course for her probable UTI, the patient's urine culture came back negative but this was while she was on antibiotics. The patient has been started on vitamin D 1000 mg daily as well. The patient has been referred for visiting nurse services for assistance with her home life as she has progressive cognitive impairment and her continues assistance with her care. The patient should have a regular unrestricted diet, encouraging fluid intake to avoid urinary tract infections and renal stones. The patient should return to the hospital for chest pain, passing out, severe nausea and vomiting, shortness of breath, or other alarming symptoms. The patient to engage in activity as tolerated. TIME SPENT: Approximately 75 minutes were spent in the discharge of this patient, 45 of which were spent [id number] with the patient and her obtaining history and physical and discussing treatment plan. This plan was discussed with my attending, Dr. Yehuda Cohen, he is in agreement. ROLANDO CARTER [id number]/CPS #: [id number]
== END 2019-01-24 18:05 | disposition home health service (06) | DRG 92 ==
LOC: ED 15:11 → MED 18:08 → OBSVTOIN 01-23 10:06
PROVIDERS: ADMIT Internal Medicine; ATTEND Internal Medicine
DX: G92 Toxic encephalopathy (principal); N39.0 Urinary tract infection, site not specified; E05.20 Thyrotoxicosis with toxic multinodular goiter without thyrotoxic crisis or storm; E83.52 Hypercalcemia; E55.9 Vitamin D deficiency, unspecified; I10 Essential (primary) hypertension; F41.0 Panic disorder [episodic paroxysmal anxiety]; J45.909 Unspecified asthma, uncomplicated; M79.7 Fibromyalgia; M19.90 Unspecified osteoarthritis, unspecified site; F03.90 Unspecified dementia, unspecified severity, without behavioral disturbance, psychotic disturbance, mood disturbance, and anxiety; G43.909 Migraine, unspecified, not intractable, without status migrainosus; G31.84 Mild cognitive impairment of uncertain or unknown etiology; F39 Unspecified mood [affective] disorder; Z87.440 Personal history of urinary (tract) infections; Z90.710 Acquired absence of both cervix and uterus; Z88.8 Allergy status to other drugs, medicaments and biological substances; Z91.018 Allergy to other foods; Z90.49 Acquired absence of other specified parts of digestive tract; Z82.0 Family history of epilepsy and other diseases of the nervous system
CPT/HCPCS: 36415; 70450; 71045; 76536; 76770; 80048; 80053; 81003; 81015; 82140; 82306; 82330; 83605; 83735; 83970; 84100; 84436; 84443; 84479; 84484; 85025; 87040; 87086; 93005; 99284; A9270-GY; G0378; G8978-GP-CJ; G8979-GP-CJ; G8980-GP-CJ; J0696; J1644; J3475

== ENCOUNTER 2020-03-31 11:03 | Observation (INO) ==
[2020-03-31 13:43] LABS: ABS Basophils 0.1 10^3/ul (0-0.2); ABS Eosinophils 0.2 10^3/ul (0-0.6); ABS Lymphocytes 2.7 10^3/ul (1.0-4.8); ABS Monocytes 0.5 10^3/ul (0-0.8); Eosinophil % 2.7 %; Hematocrit 38 % (35-47); Lymphocyte % 35.3 %; Mean Corpuscular HGB Conc 34 g/dL (31-36); Mean Corpuscular Hemoglobin 30 pg (27-31); Mean Corpuscular Volume 87 fL (80-97); Mean Platelet Volume 8.7 fL (7.4-10.4); Platelet Count 161 10^3/uL (150-450); Red Blood Count 4.38 10^6 /uL (3.70-4.87); Red Cell Distribution Width 14 % (10-15); White Blood Count 7.6 10^3/uL (3.5-10.8)
[2020-03-31 14:00] LABS: Acetaminophen < 15 mcg/mL; Salicylate < 2.50 mg/dL (<30)
[2020-03-31 14:01] LABS: ALT 9 U/L (7-52); AST 17 U/L (13-39); Albumin 4.1 g/dL (3.2-5.2); Albumin/Globulin Ratio 1.5 (1-3); Alkaline Phosphatase 95 U/L (34-104); Anion Gap 9 mmol/L (2-11); BUN/Creatinine Ratio 12.9 (8-20); Blood Urea Nitrogen 16 mg/dL (6-24); CO2 Carbon Dioxide 26 mmol/L (22-32); Calcium 9.8 mg/dL (8.6-10.3); Chloride 106 mmol/L (101-111); EGFR Non-African American 42.2 (>60); Globulin 2.8 g/dL (2-4); Glucose 99 mg/dL (70-100); Potassium 3.9 mmol/L (3.5-5.0); Sodium 141 mmol/L (135-145); Total Protein 6.9 g/dL (6.4-8.9)
[2020-03-31] MEDS ORDERED: LORazepam 0.5 mg TAB (*) PO ONE (14:59)
[2020-03-31 15:16] LABS: Urine Appearance Turbid; Urine Bilirubin 2+ (Negative); Urine Blood 3+ (Negative); Urine Color Yellow; Urine Glucose Negative (Negative); Urine Ketones Negative (Negative); Urine Nitrite Negative (Negative); Urine Protein 2+(100 mg/dL) (Negative); Urine Specific Gravity 1.014 (1.010-1.030); Urine Urobilinogen Positive (Negative)
[2020-03-31 15:21] LABS: Urine Bacteria Absent (Absent); Urine Red Blood Cell 3+(>10/hpf) (Absent); Urine White Blood Cell 3+(>20/hpf) (Absent)
[2020-03-31] MEDS ORDERED: NS 0.9% 1000 ml BAG 1,000 ML IV SCH (17:45)
[2020-03-31] MEDS: cefTRIAXone ADVAN VIAL 1 GM in NS 0.9% 50 ML 50 ML IVPB SCH (20:14)
[2020-03-31] MEDS: Heparin 5000 UNITS/ML VIAL(*) 1 ml vial SUBCUT SCH (23:28)
[2020-04-01] MEDS: Heparin 5000 UNITS/ML VIAL(*) 1 ml vial SUBCUT SCH ×3 (05:50→21:15)
[2020-04-01 06:10] LABS: ABS Basophils 0.1 10^3/ul (0-0.2); ABS Eosinophils 0.2 10^3/ul (0-0.6); ABS Lymphocytes 2.6 10^3/ul (1.0-4.8); ABS Monocytes 0.5 10^3/ul (0-0.8); Eosinophil % 2.9 %; Hematocrit 36 % (35-47); Hemoglobin 12.1 g/dL (12.0-16.0); Lymphocyte % 31.5 %; Mean Corpuscular HGB Conc 34 g/dL (31-36); Mean Corpuscular Hemoglobin 30 pg (27-31); Mean Corpuscular Volume 87 fL (80-97); Mean Platelet Volume 8.5 fL (7.4-10.4); Nucleated Red Blood Cells % 0.1; Platelet Count 170 10^3/uL (150-450); Red Cell Distribution Width 14 % (10-15); White Blood Count 8.3 10^3/uL (3.5-10.8)
[2020-04-01 06:32] LABS: BUN/Creatinine Ratio 13.2 (8-20); Calcium 8.9 mg/dL (8.6-10.3); EGFR African American 61.1 (>60); EGFR Non-African American 50.5 (>60)
[2020-04-01 07:19] LABS: Vitamin D Total 25(OH) 37.9 ng/mL (20-50)
[2020-04-01] MEDS ORDERED: Omeprazole 20 mg CAP (NF) PO SCH (09:00)
[2020-04-01] MEDS: Lidocaine PATCH 5% PATCH TRANSDERM SCH (10:14)
[2020-04-01] MEDS: cefTRIAXone ADVAN VIAL 1 GM in NS 0.9% 50 ML 50 ML IVPB SCH (18:15)
[2020-04-01] MEDS ORDERED: Lidocaine Patch REMOVE PATCH PATCH OFF SCH (21:00)
[2020-04-02] MEDS: Heparin 5000 UNITS/ML VIAL(*) 1 ml vial SUBCUT SCH (06:04)
[2020-04-02 06:55] LABS: CO2 Carbon Dioxide 20 mmol/L (22-32); Calcium 9.2 mg/dL (8.6-10.3); Chloride 108 mmol/L (101-111); Sodium 139 mmol/L (135-145)
[2020-04-02 07:00] LABS: Anion Gap 11 mmol/L (2-11); BUN/Creatinine Ratio 11.7 (8-20); Blood Urea Nitrogen 11 mg/dL (6-24); EGFR African American 70.2 (>60); EGFR Non-African American 58.1 (>60); Glucose 96 mg/dL (70-100)
[2020-04-02] MEDS: Lidocaine PATCH 5% PATCH TRANSDERM SCH (08:47)
[2020-04-02 18:24] VITALS: BP 137/63
== END 2020-04-02 16:48 | disposition home or self-care (01) ==
LOC: MEDTELE 11:03 → ED 11:03 → MEDTELE 17:19
PROVIDERS: ADMIT Internal Medicine; ATTEND Internal Medicine

== ENCOUNTER 2020-05-27 16:18 | Observation (INO) ==
[2020-05-27] MEDS ORDERED: NS 0.9% 1000 ml BAG 1,000 ML IV ONE (16:39)
[2020-05-27 17:08] LABS: ABS Basophils 0.1 10^3/ul (0-0.2); ABS Eosinophils 0.2 10^3/ul (0-0.6); ABS Lymphocytes 2.8 10^3/ul (1.0-4.8); ABS Monocytes 0.8 10^3/ul (0-0.8); Eosinophil % 1.4 %; Hematocrit 34 % (35-47); Hemoglobin 11.4 g/dL (12.0-16.0); Lymphocyte % 21.7 %; Mean Corpuscular HGB Conc 34 g/dL (31-36); Mean Corpuscular Hemoglobin 29 pg (27-31); Mean Corpuscular Volume 87 fL (80-97); Mean Platelet Volume 8.2 fL (7.4-10.4); Platelet Count 202 10^3/uL (150-450); Red Blood Count 3.88 10^6 /uL (3.70-4.87); Red Cell Distribution Width 14 % (10-15); White Blood Count 13.1 10^3/uL (3.5-10.8)
[2020-05-27] MEDS ORDERED: cefTRIAXone 1 gm/50 mL NS BAG 1 GM/50 ML BAG IV ONE (17:16)
[2020-05-27 17:33] LABS: Activated Partial Thrombo Time 26.3 seconds (26.0-38.0); INR 1.13 (0.82-1.09)
[2020-05-27 17:36] LABS: Albumin 3.6 g/dL (3.2-5.2); Albumin/Globulin Ratio 1.4 (1-3); BUN/Creatinine Ratio 14.3 (8-20); Calcium 8.7 mg/dL (8.6-10.3); EGFR African American 53.5 (>60); EGFR Non-African American 44.2 (>60); Globulin 2.5 g/dL (2-4); Potassium 4.1 mmol/L (3.5-5.0); Total Bilirubin 0.8 mg/dL (0.2-1.0); Total Protein 6.1 g/dL (6.4-8.9)
[2020-05-27] MEDS ORDERED: Ondansetron 4 mg VIAL 2 MG/ML 2 ml VIAL IV PRN (19:28)
[2020-05-27] MEDS ORDERED: Enoxaparin 40 MG/0.4 ML SYR SUBCUT SCH (20:00)
[2020-05-27] MEDS ORDERED: Albuterol HFA INHALER 8 gm MDI INH PRN (20:19)
[2020-05-27] MEDS ORDERED: HYDROcodone/ACETAMIN 5/325 mg TAB PO PRN (20:22)
[2020-05-27 20:36] LABS: Urine Appearance Cloudy; Urine Bilirubin Negative (Negative); Urine Blood Negative (Negative); Urine Color Yellow; Urine Glucose Negative (Negative); Urine Ketones Negative (Negative); Urine Nitrite Negative (Negative); Urine Protein Negative (Negative); Urine Specific Gravity 1.008 (1.010-1.030); Urine Urobilinogen Negative (Negative)
[2020-05-27 20:38] LABS: Urine Bacteria Absent (Absent); Urine Red Blood Cell Trace(0-2/hpf) (Absent); Urine Squamous Epithelial Cell Present (Absent); Urine White Blood Cell 3+(>20/hpf) (Absent)
[2020-05-27 21:03] LABS: TSH (Thyroid Stimulating Horm) 4.39 mcIU/mL (0.34-5.60)
[2020-05-27] MEDS: ETODOLAC 400 MG PO SCH (22:58)
[2020-05-28 07:43] LABS: Calcium 8.2 mg/dL (8.6-10.3); Magnesium 1.2 mg/dL (1.9-2.7)
[2020-05-28 07:48] LABS: BUN/Creatinine Ratio 13.5 (8-20); EGFR African American 62.5 (>60); EGFR Non-African American 51.7 (>60)
[2020-05-28] MEDS ORDERED: Perflutren Lipid Microsphere 3 ML VIAL ONE (08:46)
[2020-05-28] MEDS ORDERED: MILNACIPRAN 25 MG PO SCH ×2 (09:00→18:00)
[2020-05-28] MEDS ORDERED: Lidocaine PATCH 5% PATCH TRANSDERM SCH (09:00)
[2020-05-28] MEDS ORDERED: MAGNESIUM GLUCONATE PO SCH (09:00)
[2020-05-28 09:01] LABS: ABS Basophils 0.1 10^3/ul (0-0.2); ABS Eosinophils 0.1 10^3/ul (0-0.6); ABS Lymphocytes 3.3 10^3/ul (1.0-4.8); ABS Monocytes 0.5 10^3/ul (0-0.8); Eosinophil % 1.5 %; Hematocrit 34 % (35-47); Hemoglobin 11.8 g/dL (12.0-16.0); Lymphocyte % 37.2 %; Mean Corpuscular HGB Conc 34 g/dL (31-36); Mean Corpuscular Hemoglobin 30 pg (27-31); Mean Corpuscular Volume 87 fL (80-97); Mean Platelet Volume 9.1 fL (7.4-10.4); Nucleated Red Blood Cells % 0.1; Platelet Count 159 10^3/uL (150-450); Red Blood Count 3.95 10^6 /uL (3.70-4.87); Red Cell Distribution Width 14 % (10-15)
[2020-05-28] MEDS: ETODOLAC 400 MG PO SCH (09:30)
[2020-05-28] MEDS ORDERED: cefTRIAXone 1 gm/50 mL NS BAG 1 GM/50 ML BAG IVPB SCH (18:00)
[2020-05-28 18:15] VITALS: BP 103/73
[2020-05-28] MEDS ORDERED: Lidocaine Patch REMOVE PATCH PATCH OFF SCH (21:00)
== END 2020-05-28 18:12 | disposition home or self-care (01) ==
LOC: MEDTELE 16:18 → ED 16:18
PROVIDERS: ADMIT Hospitalist; ATTEND Internal Medicine

== ENCOUNTER 2021-01-18 14:19 | Inpatient (IN) ==
[2021-01-18 16:15] LABS: Urine Benzodiazepine Screen None Detected (None Detect); Urine Cannabinoids Screen None Detected (None Detect); Urine Opiates Screen Presumptive Positive (None Detect)
[2021-01-18 16:41] LABS: Urine Appearance Turbid; Urine Bacteria 1+ (Absent); Urine Bilirubin Negative (Negative); Urine Blood 3+ (Negative); Urine Color Yellow; Urine Glucose Negative (Negative); Urine Ketones Negative (Negative); Urine Nitrite Negative (Negative); Urine Protein 1+(30 mg/dL) (Negative); Urine Red Blood Cell 3+(>10/hpf) (Absent); Urine Specific Gravity 1.017 (1.010-1.030); Urine Squamous Epithelial Cell Present (Absent); Urine Urobilinogen Negative (Negative); Urine White Blood Cell 3+(>20/hpf) (Absent)
[2021-01-18] MEDS ORDERED: cefTRIAXone 1 gm/50 mL NS BAG 1 GM/50 ML BAG IV ONE (16:42)
[2021-01-18 16:52] LABS: TSH Ultra Thyroid Stim Horm 1.91 mcIU/mL (0.34-5.60)
[2021-01-18 16:56] LABS: ALT 7 U/L (7-52); AST 17 U/L (13-39); Albumin 3.2 g/dL (3.2-5.2); Albumin/Globulin Ratio 0.9 (1-3); Alkaline Phosphatase 91 U/L (34-104); Anion Gap 18 mmol/L (2-11); BUN/Creatinine Ratio 6.7 (8-20); Blood Urea Nitrogen 10 mg/dL (6-24); CO2 Carbon Dioxide 20 mmol/L (22-32); Calcium 10.1 mg/dL (8.6-10.3); Chloride 102 mmol/L (101-111); EGFR African American 41.2 (>60); Globulin 3.4 g/dL (2-4); Glucose 99 mg/dL (70-100); Potassium 3.4 mmol/L (3.5-5.0); Sodium 140 mmol/L (135-145); Total Protein 6.6 g/dL (6.4-8.9)
[2021-01-18 17:03] LABS: Hematocrit 49 % (35-47); Hemoglobin 16.1 g/dL (12.0-16.0); Mean Corpuscular HGB Conc 33 g/dL (31-36); Mean Corpuscular Hemoglobin 30 pg (27-31); Mean Corpuscular Volume 91 fL (80-97); Red Blood Count 5.38 10^6 /uL (3.70-4.87); Red Cell Distribution Width 15 % (10-15); White Blood Count 8.3 10^3/uL (3.5-10.8)
[2021-01-18 17:05] LABS: Acetaminophen < 15 mcg/mL; Alcohol, S < 10 mg/dL (<10); Salicylate < 2.50 mg/dL (<30)
[2021-01-18 17:22] LABS: ABS Basophils 0.1 10^3/ul (0-0.2); ABS Eosinophils 0.1 10^3/ul (0-0.6); ABS Lymphocytes 1.8 10^3/ul (1.0-4.8); ABS Monocytes 0.6 10^3/ul (0-0.8); ABS Neutrophils 5.8 10^3/ul (1.5-7.7); Lymphocyte % 21.2 %; Mean Platelet Volume 8.8 fL (7.4-10.4); Nucleated Red Blood Cells % 0.2; Platelet Count 124 10^3/uL (150-450)
[2021-01-18] MEDS ORDERED: NS 0.9% 1000 ml BAG 1,000 ML IV SCH (18:45)
[2021-01-18] MEDS: Albuterol/Ipratropium NEB.SOL (2.5/0.5 MG) 3 ML NEB.SOLN INH SCH (19:28)
[2021-01-19] MEDS: Albuterol/Ipratropium NEB.SOL (2.5/0.5 MG) 3 ML NEB.SOLN INH SCH ×4 (01:13→19:29)
[2021-01-19 09:54] LABS: BUN/Creatinine Ratio 6.6 (8-20); Calcium 9.8 mg/dL (8.6-10.3); EGFR African American 52.3 (>60); EGFR Non-African American 43.3 (>60); Potassium 2.9 mmol/L (3.5-5.0)
[2021-01-19] MEDS: Enoxaparin 40 MG/0.4 ML SYR SUBCUT SCH (10:12)
[2021-01-19] MEDS ORDERED: Potassium Chlor 20 meq TAB.ER PO ONE (11:07)
[2021-01-19] MEDS: cefTRIAXone 1 gm/50 mL NS BAG 1 GM/50 ML BAG IVPB SCH (20:35)
[2021-01-20] MEDS: Albuterol/Ipratropium NEB.SOL (2.5/0.5 MG) 3 ML NEB.SOLN INH SCH ×4 (00:33→19:35)
[2021-01-20 08:26] LABS: BUN/Creatinine Ratio 9.2 (8-20); EGFR African American 48.2 (>60); EGFR Non-African American 39.8 (>60); Potassium 3.8 mmol/L (3.5-5.0)
[2021-01-20] MEDS: Enoxaparin 40 MG/0.4 ML SYR SUBCUT SCH (09:28)
[2021-01-20] MEDS: cefTRIAXone 1 gm/50 mL NS BAG 1 GM/50 ML BAG IVPB SCH (19:48)
[2021-01-21] MEDS: Albuterol/Ipratropium NEB.SOL (2.5/0.5 MG) 3 ML NEB.SOLN INH SCH ×3 (01:23→13:11)
[2021-01-21] MEDS: Enoxaparin 40 MG/0.4 ML SYR SUBCUT SCH (09:14)
[2021-01-21 14:01] VITALS: BP 123/70
== END 2021-01-21 14:40 | disposition home health service (06) | DRG 689 ==
LOC: MED 14:19 → ED 14:19 → OBSVTOIN 01-19 07:26
PROVIDERS: ADMIT Internal Medicine; ATTEND Internal Medicine

== ENCOUNTER 2021-05-05 13:34 | Inpatient (IN) ==
[2021-05-05 15:04] LABS: ABS Basophils 0.1 10^3/ul (0-0.2); ABS Eosinophils 0.3 10^3/ul (0-0.6); ABS Lymphocytes 2.5 10^3/ul (1.0-4.8); ABS Monocytes 0.7 10^3/ul (0-0.8); ABS Neutrophils 5.4 10^3/ul (1.5-7.7); Eosinophil % 2.8 %; Hematocrit 35 % (35-47); Hemoglobin 12.5 g/dL (12.0-16.0); Lymphocyte % 27.6 %; Mean Corpuscular HGB Conc 35 g/dL (31-36); Mean Corpuscular Hemoglobin 32 pg (27-31); Mean Corpuscular Volume 91 fL (80-97); Mean Platelet Volume 9.1 fL (7.4-10.4); Platelet Count 124 10^3/uL (150-450); Red Blood Count 3.88 10^6 /uL (3.70-4.87); Red Cell Distribution Width 14 % (10-15)
[2021-05-05 15:25] LABS: Albumin 3.9 g/dL (3.2-5.2); Albumin/Globulin Ratio 1.7 (1-3); Calcium 11.4 mg/dL (8.6-10.3); EGFR African American 48.2 (>60); EGFR Non-African American 39.8 (>60); Globulin 2.3 g/dL (2-4); Potassium 3.4 mmol/L (3.5-5.0); Total Bilirubin 0.7 mg/dL (0.2-1.0); Total Protein 6.2 g/dL (6.4-8.9)
[2021-05-05 15:50] LABS: Urine Appearance Turbid; Urine Bilirubin Negative (Negative); Urine Blood 3+ (Negative); Urine Color Amber; Urine Glucose Negative (Negative); Urine Ketones Trace (Negative); Urine Nitrite Positive (Negative); Urine Protein 2+(100 mg/dL) (Negative); Urine Specific Gravity 1.016 (1.002-1.030); Urine Urobilinogen Negative (Negative)
[2021-05-05 16:04] LABS: Urine Bacteria Absent (Absent); Urine Red Blood Cell 3+(>10/hpf) (Absent); Urine Squamous Epithelial Cell Present (Absent); Urine White Blood Cell 3+(>20/hpf) (Absent)
[2021-05-05] MEDS ORDERED: cefTRIAXone 1 gm/50 mL NS BAG 1 GM/50 ML BAG IV ONE (16:37)
[2021-05-05] MEDS ORDERED: NS 0.9% 1000 ml BAG 1,000 ML IV ONE (16:45)
[2021-05-05] MEDS: Heparin 5000 UNITS/ML 1 mL VIAL SUBCUT SCH (22:00)
[2021-05-05] MEDS ORDERED: Potassium Chlor 20 meq TAB.ER PO ONE (22:10)
[2021-05-06] MEDS: Heparin 5000 UNITS/ML 1 mL VIAL SUBCUT SCH ×3 (05:21→22:15)
[2021-05-06 09:33] LABS: ABS Basophils 0.1 10^3/ul (0-0.2); ABS Eosinophils 0.3 10^3/ul (0-0.6); ABS Lymphocytes 2.2 10^3/ul (1.0-4.8); ABS Monocytes 0.3 10^3/ul (0-0.8); ABS Neutrophils 3.2 10^3/ul (1.5-7.7); Eosinophil % 4.3 %; Hematocrit 35 % (35-47); Lymphocyte % 35.9 %; Mean Corpuscular HGB Conc 35 g/dL (31-36); Mean Corpuscular Hemoglobin 32 pg (27-31); Mean Corpuscular Volume 92 fL (80-97); Nucleated Red Blood Cells % 0.1; Platelet Count 101 10^3/uL (150-450); Red Blood Count 3.73 10^6 /uL (3.70-4.87); Red Cell Distribution Width 14 % (10-15)
[2021-05-06 09:49] LABS: Calcium 10.6 mg/dL (8.6-10.3); EGFR African American 52.9 (>60); EGFR Non-African American 43.7 (>60); Potassium 3.6 mmol/L (3.5-5.0)
[2021-05-06] MEDS: Magnesium Chloride EC 64 mgTAB PO SCH (10:28)
[2021-05-06] MEDS: NS 0.9% 1000 ml BAG 1,000 ML IV SCH (11:33)
[2021-05-06] MEDS: cefTRIAXone 1 gm/50 mL NS BAG 1 GM/50 ML BAG IVPB SCH (17:38)
[2021-05-07] MEDS: NS 0.9% 1000 ml BAG 1,000 ML IV SCH ×2 (06:01→22:30)
[2021-05-07] MEDS: Heparin 5000 UNITS/ML 1 mL VIAL SUBCUT SCH ×3 (06:01→22:22)
[2021-05-07 07:26] LABS: Albumin 3.4 g/dL (3.2-5.2); Albumin/Globulin Ratio 1.3 (1-3); Calcium 10.1 mg/dL (8.6-10.3); EGFR African American 64.5 (>60); EGFR Non-African American 53.3 (>60); Globulin 2.7 g/dL (2-4); Potassium 4.1 mmol/L (3.5-5.0); Total Bilirubin 0.4 mg/dL (0.2-1.0); Total Protein 6.1 g/dL (6.4-8.9)
[2021-05-07] MEDS: Magnesium Chloride EC 64 mgTAB PO SCH (09:41)
[2021-05-07] MEDS: cefTRIAXone 1 gm/50 mL NS BAG 1 GM/50 ML BAG IVPB SCH (18:29)
[2021-05-07] MEDS ORDERED: Senna TAB 8.6 mg TAB PO PRN (19:58)
[2021-05-07] MEDS ORDERED: Magnesium Hydroxide LIQ 30 ML UDC PO PRN (19:58)
[2021-05-08] MEDS: Heparin 5000 UNITS/ML 1 mL VIAL SUBCUT SCH ×2 (05:50→14:09)
[2021-05-08] MEDS: Magnesium Chloride EC 64 mgTAB PO SCH (10:17)
[2021-05-08 13:27] VITALS: BP 128/69
== END 2021-05-08 14:28 | disposition home or self-care (01) | DRG 689 ==
LOC: ED 13:34 → MED 17:47
PROVIDERS: ADMIT Hospitalist; ATTEND Internal Medicine

== ENCOUNTER 2021-06-09 20:48 | Inpatient (IN) ==
[2021-06-09] MEDS ORDERED: NS 0.9% 1000 ml BAG 1,000 ML IV ONE (22:14)
[2021-06-09 22:19] LABS: ABS Basophils 0.1 10^3/ul (0-0.2); ABS Eosinophils 0.1 10^3/ul (0-0.6); ABS Lymphocytes 2.9 10^3/ul (1.0-4.8); ABS Monocytes 0.6 10^3/ul (0-0.8); ABS Neutrophils 5.9 10^3/ul (1.5-7.7); Eosinophil % 1.1 %; Hematocrit 39 % (35-47); Hemoglobin 13.7 g/dL (12.0-16.0); Lymphocyte % 30.6 %; Mean Corpuscular HGB Conc 35 g/dL (31-36); Mean Corpuscular Hemoglobin 32 pg (27-31); Mean Corpuscular Volume 91 fL (80-97); Mean Platelet Volume 10.2 fL (7.4-10.4); Nucleated Red Blood Cells % 0.1; Platelet Count 155 10^3/uL (150-450); Red Blood Count 4.26 10^6 /uL (3.70-4.87); Red Cell Distribution Width 14 % (10-15); White Blood Count 9.6 10^3/uL (3.5-10.8)
[2021-06-09 22:40] LABS: Albumin 3.9 g/dL (3.2-5.2); Albumin/Globulin Ratio 1.8 (1-3); C Reactive Protein 5.72 mg/L (<8.01); Calcium 10.9 mg/dL (8.6-10.3); EGFR African American 10.5 (>60); EGFR Non-African American 8.7 (>60); Globulin 2.2 g/dL (2-4); Magnesium 1.5 mg/dL (1.9-2.7); Potassium 2.9 mmol/L (3.5-5.0); Total Bilirubin 0.5 mg/dL (0.2-1.0); Total Protein 6.1 g/dL (6.4-8.9)
[2021-06-09] MEDS ORDERED: Magnesium Sulfate 2 gm BAG 2 GM/50 ML BAG IVPB ONE (22:43)
[2021-06-09] MEDS ORDERED: KCL 20 MEQ/100 ML IVPREMIX 20 MEQ/100 ML BAG IV ONE (22:43)
[2021-06-10] MEDS ORDERED: Magnesium Sulfate 2 gm BAG 2 GM/50 ML BAG IVPB ONE (00:39)
[2021-06-10 00:58] LABS: Phosphorus 3.4 mg/dL (2.5-5.0)
[2021-06-10 01:32] LABS: Vitamin D Total 25(OH) 49.2 ng/mL (20-50)
[2021-06-10 01:33] LABS: Calcium (PTH Intact) 10.9 mg/dL (8.6-10.3)
[2021-06-10 02:32] LABS: Urine Appearance Cloudy; Urine Bilirubin Negative (Negative); Urine Blood 3+ (Negative); Urine Color Yellow; Urine Glucose Negative (Negative); Urine Ketones Negative (Negative); Urine Nitrite Negative (Negative); Urine Protein 1+(30 mg/dL) (Negative); Urine Specific Gravity 1.008 (1.002-1.030); Urine Urobilinogen Negative (Negative)
[2021-06-10 02:41] LABS: Urine Bacteria 3+ (Absent); Urine Red Blood Cell 3+(>10/hpf) (Absent); Urine Squamous Epithelial Cell Present (Absent); Urine White Blood Cell 3+(>20/hpf) (Absent)
[2021-06-10] MEDS ORDERED: Lactated Ringers 1000 ml BAG 1,000 ML IV ONE (03:13)
[2021-06-10] MEDS: Lactated Ringers 1000 ml BAG 1,000 ML IV SCH ×3 (04:34→21:48)
[2021-06-10] MEDS: KCL 20 MEQ/100 ML IVPREMIX 20 MEQ/100 ML BAG IV SCH ×2 (05:54→11:01)
[2021-06-10 06:56] LABS: Calcium 10.3 mg/dL (8.6-10.3); EGFR Non-African American 11.5 (>60); Magnesium 3.2 mg/dL (1.9-2.7); Potassium 3.1 mmol/L (3.5-5.0)
[2021-06-10] MEDS ORDERED: KCL 20 MEQ/100 ML IVPREMIX 20 MEQ/100 ML BAG IV ONE (07:15)
[2021-06-10] MEDS ORDERED: cefTRIAXone 1 gm/50 mL NS BAG 1 GM/50 ML BAG IVPB SCH (07:30)
[2021-06-10] MEDS: Cholecalciferol (VIT D3) 1,000 unit TAB PO SCH (08:30)
[2021-06-10] MEDS ORDERED: [UNRECOGNIZED DRUG - OTHER] TOPICAL PRN (09:00)
[2021-06-10] MEDS ORDERED: CICLOPIROX 0.77% TOPICAL PRN (09:00)
[2021-06-10] MEDS ORDERED: HYDROCORTISONE 2.5% TOPICAL PRN (09:00)
[2021-06-10] MEDS ORDERED: NF: Estradiol VAG CM (NF) 1 APPLIC TUBE VAGINAL SCH (09:00)
[2021-06-10 15:00] LABS: Urine Creatinine Concentration 49.98 mg/dL
[2021-06-10] MEDS ORDERED: KCL 20 MEQ/100 ML IVPREMIX 20 MEQ/100 ML BAG ONE (16:24)
[2021-06-11 06:46] LABS: ABS Eosinophils 0.2 10^3/ul (0-0.6); ABS Lymphocytes 2.3 10^3/ul (1.0-4.8); ABS Monocytes 0.3 10^3/ul (0-0.8); ABS Neutrophils 2.3 10^3/ul (1.5-7.7); Eosinophil % 3.6 %; Hematocrit 32 % (35-47); Hemoglobin 11.5 g/dL (12.0-16.0); Lymphocyte % 44.8 %; Mean Corpuscular HGB Conc 36 g/dL (31-36); Mean Corpuscular Hemoglobin 33 pg (27-31); Mean Corpuscular Volume 93 fL (80-97); Mean Platelet Volume 9.9 fL (7.4-10.4); Nucleated Red Blood Cells % 0.2; Platelet Count 116 10^3/uL (150-450); Red Blood Count 3.46 10^6 /uL (3.70-4.87); Red Cell Distribution Width 14 % (10-15); White Blood Count 5.1 10^3/uL (3.5-10.8)
[2021-06-11 07:00] LABS: CO2 Carbon Dioxide 18 mmol/L (22-32); Calcium 10.4 mg/dL (8.6-10.3); Sodium 138 mmol/L (135-145)
[2021-06-11 07:05] LABS: Blood Urea Nitrogen 47 mg/dL (6-24); EGFR African American 21.2 (>60); EGFR Non-African American 17.5 (>60); Glucose 86 mg/dL (70-100)
[2021-06-11 07:17] LABS: Anion Gap 8 mmol/L (2-11); Chloride 112 mmol/L (101-111)
[2021-06-11] MEDS: Cholecalciferol (VIT D3) 1,000 unit TAB PO SCH (07:46)
[2021-06-11] MEDS: cefTRIAXone 2 GM ADDV.VIAL 2 GM in NS 0.9% 100 ml BAG 100 ML IV SCH (13:47)
[2021-06-11 13:57] LABS: Magnesium 1.8 mg/dL (1.9-2.7)
[2021-06-11 14:06] LABS: % Iron Saturation 14 % (15-55); Iron 36 ug/dL (50-212); Total Iron Binding Capacity 260 mcg/dL (250-450); Transferrin 186 mg/dL (203-362); Unsaturated Iron Binding < 245 ug/dL
[2021-06-11 14:20] LABS: Ferritin 23.6 ng/mL (11-307)
[2021-06-11] MEDS: Magnesium Sulfate 2 gm BAG 2 GM/50 ML BAG IVPB ONE ×2 (14:20→14:28)
[2021-06-11 14:33] LABS: Urine Appearance Cloudy; Urine Bilirubin Negative (Negative); Urine Blood Negative (Negative); Urine Color Yellow; Urine Glucose Negative (Negative); Urine Ketones Negative (Negative); Urine Nitrite Negative (Negative); Urine Protein Negative (Negative); Urine Specific Gravity 1.008 (1.002-1.030); Urine Urobilinogen Negative (Negative)
[2021-06-11 14:42] LABS: Urine Bacteria 1+ (Absent); Urine Red Blood Cell Trace(0-2/hpf) (Absent); Urine Squamous Epithelial Cell Present (Absent); Urine White Blood Cell Trace(0-5/hpf) (Absent)
[2021-06-11] MEDS: Lactated Ringers 1000 ml BAG 1,000 ML IV SCH (14:45)
[2021-06-11] MEDS ORDERED: Potassium Chlor 20 meq TAB.ER PO ONE (16:45)
[2021-06-12] MEDS: Lactated Ringers 1000 ml BAG 1,000 ML IV SCH ×2 (03:01→11:27)
[2021-06-12 05:47] LABS: ABS Eosinophils 0.2 10^3/ul (0-0.6); ABS Monocytes 0.3 10^3/ul (0-0.8); ABS Neutrophils 1.9 10^3/ul (1.5-7.7); Eosinophil % 3.6 %; Hematocrit 33 % (35-47); Hemoglobin 11.4 g/dL (12.0-16.0); Lymphocyte % 46.1 %; Mean Corpuscular HGB Conc 35 g/dL (31-36); Mean Corpuscular Hemoglobin 32 pg (27-31); Mean Corpuscular Volume 93 fL (80-97); Mean Platelet Volume 9.5 fL (7.4-10.4); Platelet Count 105 10^3/uL (150-450); Red Blood Count 3.52 10^6 /uL (3.70-4.87); Red Cell Distribution Width 14 % (10-15); White Blood Count 4.4 10^3/uL (3.5-10.8)
[2021-06-12 06:04] LABS: Calcium 10.1 mg/dL (8.6-10.3); EGFR African American 30.9 (>60); EGFR Non-African American 25.5 (>60); Potassium 4.1 mmol/L (3.5-5.0)
[2021-06-12] MEDS: cefTRIAXone 2 GM ADDV.VIAL 2 GM in NS 0.9% 100 ml BAG 100 ML IV SCH (14:15)
[2021-06-13] MEDS ORDERED: cefTRIAXone ADVAN VIAL 1 GM in NS 0.9% 50 ML 50 ML IVPB SCH (09:00)
[2021-06-13 09:51] LABS: ABS Eosinophils 0.2 10^3/ul (0-0.6); ABS Lymphocytes 2.6 10^3/ul (1.0-4.8); ABS Monocytes 0.3 10^3/ul (0-0.8); ABS Neutrophils 2.6 10^3/ul (1.5-7.7); Eosinophil % 3.8 %; Hematocrit 34 % (35-47); Hemoglobin 11.8 g/dL (12.0-16.0); Lymphocyte % 45.8 %; Mean Corpuscular HGB Conc 35 g/dL (31-36); Mean Corpuscular Hemoglobin 32 pg (27-31); Mean Corpuscular Volume 93 fL (80-97); Mean Platelet Volume 9.5 fL (7.4-10.4); Platelet Count 108 10^3/uL (150-450); Red Blood Count 3.65 10^6 /uL (3.70-4.87); Red Cell Distribution Width 15 % (10-15); White Blood Count 5.7 10^3/uL (3.5-10.8)
[2021-06-13 10:07] LABS: Calcium 9.8 mg/dL (8.6-10.3); EGFR Non-African American 32.3 (>60); Potassium 3.6 mmol/L (3.5-5.0)
[2021-06-13 11:30] VITALS: BP 122/55
== END 2021-06-13 13:50 | disposition home or self-care (01) | DRG 684 ==
LOC: ED 20:48 → MED 06-10 00:28 → SSU 06-11 14:59
PROVIDERS: ADMIT Internal Medicine; ATTEND Hospitalist

== ENCOUNTER 2021-08-02 07:44 | Inpatient (IN) ==
[2021-08-02] MEDS ORDERED: NS 0.9% 1000 ml BAG 1,000 ML IV ONE (08:44)
[2021-08-02 09:30] LABS: ABS Basophils 0.1 10^3/ul (0-0.2); ABS Eosinophils 0.3 10^3/ul (0-0.6); ABS Monocytes 0.6 10^3/ul (0-0.8); ABS Neutrophils 8.2 10^3/ul (1.5-7.7); Eosinophil % 2.4 %; Hematocrit 36 % (35-47); Hemoglobin 12.3 g/dL (12.0-16.0); Lymphocyte % 24.7 %; Mean Corpuscular HGB Conc 34 g/dL (31-36); Mean Corpuscular Hemoglobin 31 pg (27-31); Mean Corpuscular Volume 90 fL (80-97); Mean Platelet Volume 9.2 fL (7.4-10.4); Platelet Count 147 10^3/uL (150-450); Red Blood Count 3.96 10^6 /uL (3.70-4.87); Red Cell Distribution Width 13 % (10-15); White Blood Count 12.2 10^3/uL (3.5-10.8)
[2021-08-02 10:02] LABS: Albumin 3.5 g/dL (3.2-5.2); Albumin/Globulin Ratio 1.3 (1-3); Calcium 10.1 mg/dL (8.6-10.3); EGFR African American 57.1 (>60); EGFR Non-African American 47.2 (>60); Globulin 2.6 g/dL (2-4); Potassium 3.1 mmol/L (3.5-5.0); Total Bilirubin 0.4 mg/dL (0.2-1.0); Total Protein 6.1 g/dL (6.4-8.9)
[2021-08-02 10:19] LABS: Magnesium 0.9 mg/dL (1.9-2.7)
[2021-08-02] MEDS ORDERED: Magnesium Sulf 4 GM/100 ML IV 4,000 MG/100 ML BAG IVPB ONE (10:19)
[2021-08-02] MEDS ORDERED: Potassium Chlor 20 meq TAB.ER PO ONE (10:19)
[2021-08-02 10:57] LABS: Calcium (PTH Intact) 9.8 mg/dL (8.6-10.3)
[2021-08-02 12:26] LABS: Rapid COVID-19 Molecular Undetected (Undetected)
[2021-08-02] MEDS ORDERED: Lactated Ringers 1000 ml BAG 1,000 ML IV ONE (14:17)
[2021-08-02] MEDS: Enoxaparin 40 MG/0.4 ML SYR SUBCUT SCH (20:49)
[2021-08-02 22:12] LABS: Urine Appearance Clear; Urine Bilirubin Negative (Negative); Urine Blood 3+ (Negative); Urine Color Yellow; Urine Glucose Negative (Negative); Urine Ketones Negative (Negative); Urine Nitrite Negative (Negative); Urine Protein Negative (Negative); Urine Urobilinogen Negative (Negative)
[2021-08-02 22:17] LABS: Urine Bacteria 1+ (Absent); Urine Red Blood Cell 3+(>10/hpf) (Absent); Urine Squamous Epithelial Cell Present (Absent); Urine White Blood Cell 1+(6-10/hpf) (Absent)
[2021-08-03] MEDS ORDERED: Magnesium Sulfate 2 gm BAG 2 GM/50 ML BAG IVPB ONE ×2 (06:09→09:37)
[2021-08-03] MEDS ORDERED: Potassium Chlor 20 meq TAB.ER PO ONE (06:15)
[2021-08-03] MEDS ORDERED: Lactated Ringers 1000 ml BAG 1,000 ML IV ONE (06:32)
[2021-08-03 07:10] LABS: ABS Basophils 0.1 10^3/ul (0-0.2); ABS Eosinophils 0.2 10^3/ul (0-0.6); ABS Lymphocytes 2.6 10^3/ul (1.0-4.8); ABS Monocytes 0.3 10^3/ul (0-0.8); ABS Neutrophils 3.2 10^3/ul (1.5-7.7); Eosinophil % 3.4 %; Hematocrit 31 % (35-47); Hemoglobin 11.1 g/dL (12.0-16.0); Lymphocyte % 40.6 %; Mean Corpuscular HGB Conc 36 g/dL (31-36); Mean Corpuscular Hemoglobin 32 pg (27-31); Mean Corpuscular Volume 90 fL (80-97); Platelet Count 115 10^3/uL (150-450); Red Blood Count 3.46 10^6 /uL (3.70-4.87); Red Cell Distribution Width 13 % (10-15); White Blood Count 6.3 10^3/uL (3.5-10.8)
[2021-08-03 07:23] LABS: Calcium 9.8 mg/dL (8.6-10.3); EGFR African American 67.4 (>60); EGFR Non-African American 55.7 (>60); Magnesium 1.3 mg/dL (1.9-2.7); Potassium 3.6 mmol/L (3.5-5.0)
[2021-08-03] MEDS: Cholecalciferol (VIT D3) 1,000 unit TAB PO SCH (09:46)
[2021-08-03 15:17] LABS: C Reactive Protein 5.36 mg/L (<8.01)
[2021-08-03] MEDS: Enoxaparin 40 MG/0.4 ML SYR SUBCUT SCH (20:18)
[2021-08-04 06:18] LABS: Hematocrit 32 % (35-47); Hemoglobin 11.1 g/dL (12.0-16.0); Mean Corpuscular HGB Conc 35 g/dL (31-36); Mean Corpuscular Hemoglobin 31 pg (27-31); Mean Corpuscular Volume 90 fL (80-97); Mean Platelet Volume 9.1 fL (7.4-10.4); Platelet Count 123 10^3/uL (150-450); Red Blood Count 3.56 10^6 /uL (3.70-4.87); Red Cell Distribution Width 14 % (10-15); White Blood Count 5.7 10^3/uL (3.5-10.8)
[2021-08-04 06:46] LABS: Calcium 9.9 mg/dL (8.6-10.3); EGFR African American 69.9 (>60); EGFR Non-African American 57.7 (>60); Magnesium 1.4 mg/dL (1.9-2.7); Potassium 3.5 mmol/L (3.5-5.0)
[2021-08-04] MEDS ORDERED: Magnesium Sulf 4 GM/100 ML IV 4,000 MG/100 ML BAG IVPB ONE (06:49)
[2021-08-04] MEDS ORDERED: Potassium Chlor 20 meq TAB.ER PO ONE (06:52)
[2021-08-04] MEDS ORDERED: Lactated Ringers 1000 ml BAG 1,000 ML IV ONE (06:55)
[2021-08-04] MEDS: Cholecalciferol (VIT D3) 1,000 unit TAB PO SCH (09:44)
[2021-08-04 12:31] VITALS: BP 144/62
== END 2021-08-04 17:20 | disposition home or self-care (01) | DRG 641 ==
LOC: ED 07:44 → SUATTDRO 12:10 → MED 12:10
PROVIDERS: ADMIT Internal Medicine; ATTEND Internal Medicine